=== PATIENT | male | born 1960 | race Caucasian/White ===

== ENCOUNTER → 2017-11-06 07:17 | Outpatient (CLI) | payer MEDICAID, SELFPAY ==
[2017-11-06 07:56] LABS: Alanine Aminotransferase 34 U/L (12-78); Albumin Level 3.7 gm/dL (3.4-5.0); Albumin/Globulin Ratio 1.1 (1.1-1.8); Alkaline Phosphatase 105 U/L (46-116); Anion Gap 12.3 mEq/L (5-15); Aspartate Amino Transferase 20 U/L (15-37); Bilirubin,Total 0.1 mg/dL (0.2-1.0); Blood Urea Nitrogen 20 mg/dL (7-18); Calcium 8.4 mg/dL (8.5-10.1); Carbon Dioxide 26 mmol/L (21.0-32.0); Chloride 106 mmol/L (98-107); Chol/HDL Ratio 2.1 (1-3.5); Cholesterol 179 mg/dL (140-200); Creatinine,Serum 1.07 mg/dL (0.70-1.30); Estimated Glomerular Filt Rate 71 ml/min (>60); GFR (African American) 86 ML/MIN (>60); Globulin 3.3 gm/dl (1.3-3.2); Glucose 95 mg/dL (74-106); HDL Cholesterol 85 mg/dL (27-67); LDL Cholesterol 79 mg/dL (0-130); Potassium 4.3 mmoL/L (3.5-5.1); Sodium 140 mmol/L (136-145); Thyroid Stimulating Hormone 0.34 uIU/ml (0.358-3.740); Triglycerides 76 mg/dL (30-200); VLDL Cholesterol 15 mg/dL (0-40)
[2017-11-06 08:50] LABS: Basophils % 0.6 % (0.1-2.0); Eosinophils # 0.3 K/mm3 (0.0-0.4); Eosinophils % 4.9 % (0.1-12.0); Hemoglobin 15.4 g/dL (14.1-18.0); Lymphocytes # 1.5 K/mm3 (0.7-4.5); Mean Corpuscular HGB Conc 32.7 g/dL (31.8-35.4); Mean Corpuscular Hemoglobin 29.6 pg (27.0-31.2); Mean Corpuscular Volume 90.6 fl (80-94); Mean Platelet Volume 7.2 fl (7.4-10.4); Monocytes # 0.4 K/mm3 (0.1-1.0); Monocytes % 6.5 % (1.7-9.3); Neutrophils # 3.3 K/mm3 (1.8-7.8); Platelet Count 281 K/mm3 (142-424); Red Blood Count 5.19 M/mm3 (4.60-6.20); Red Cell Distribution Width 13.9 % (11.5-17.5); White Blood Count 5.5 K/mm3 (4.8-10.8)
[2017-11-10 14:50] LABS: Vitamin D 25 Hydroxy 30.1 ng/mL (30.0-100.0)
== END ==
PROVIDERS: PCP Internal Medicine Adolescent Medicine; Visit Provider Internal Medicine Adolescent Medicine
DX: E78.5 Hyperlipidemia, unspecified (principal); E03.9 Hypothyroidism, unspecified; E55.9 Vitamin D deficiency, unspecified
CPT/HCPCS: 36415; 80053; 80061; 82652; 84443; 85025

== ENCOUNTER → 2018-03-19 09:26 | Outpatient (CLI) | payer MEDICAID, SELFPAY ==
--- NOTE | 2018-03-19 09:31 | XR_ITS ---
XR knee RT 4V Ordering Physician: Isaiah Parker MD. Patient Age: 58 years: Male HISTORY: ITS.REASON: RT KNEE PAIN No known injury TECHNIQUE: 3 view right knee weightbearing but no injury COMPARISON : November 2016 FINDINGS . Patellofemoral joint appears satisfactory on sunrise view. Weightbearing views of the knee show no prominent findings are may be some mild borderline of the medial compartment But this is negligible. There is mild sclerotic changes at medial and lateral tibial plateau. Small joint effusion suspected at the suprapatella bursa Or calcification posterior to the knee appear to be vascular most likely difficult to exclude a Yang's cyst as well posteriorly IMPRESSION: No fracture. No dislocation Suspect small joint effusion suprapatella bursa. Joint space fairly well maintained with only borderline narrowing medial compartment
== END ==
PROVIDERS: PCP Internal Medicine Adolescent Medicine; Visit Provider Internal Medicine Adolescent Medicine
DX: M25.561 Pain in right knee (principal)
CPT/HCPCS: 73564

== ENCOUNTER → 2018-05-02 13:57 | Outpatient (CLI) | payer MEDICAID, SELFPAY ==
--- NOTE | 2018-05-02 13:58 | MR_ITS ---
MR knee RT wo con HISTORY: Right knee injury with a palpable abnormality medially. Knee pain ITS.REASON: injury of right knee ORDERING PHYSICIAN: Waylon Bender MD PATIENT AGE: 58 years Comparison: 03/19/2018 TECHNIQUE: Standard multiplanar multiecho sequences are performed without contrast. FINDINGS: Posterior cruciate ligament is intact. There is thinning of the superior segments of the anterior cruciate ligament at its insertion on the femur suggesting a sprain. There is some mild hyper biplane of the PCL. The collateral ligaments and patellar tendon and quadriceps tendon are intact. There is a complex tear involving the posterior horn of the medial meniscus with multiple small meniscal fragments which are nondisplaced at this region. The anterior horn of the medial meniscus is intact. The anterior horn of the lateral meniscus is intact. There is a flipped posterior horn of the lateral meniscus flipped toward the central aspect of the knee with only fluid noted at the position where the meniscus should be. The patellar cartilage is preserved. There is a knee joint effusion with multiple complex Yang's cyst measuring up to 6 cm and left containing some internal debris. There are minimal osteoarthritic changes of the knee. Slight increased T2 signal involves the medial femoral condyle posteriorly nonspecific. IMPRESSION: 1. Complex tear the posterior horn of the medial meniscus. 2. Tear of the posterior horn of the lateral meniscus with a flipped meniscus. 3. Possible sprain of the ACL 4. Complex Yang cysts 5. Small amount of bone marrow edema in the medial femoral condyle posteriorly
== END ==
PROVIDERS: PCP Internal Medicine Adolescent Medicine; Visit Provider Orthopaedic Surgery
DX: M17.11 Unilateral primary osteoarthritis, right knee (principal); S89.91XA Unspecified injury of right lower leg, initial encounter
CPT/HCPCS: 73721

== ENCOUNTER → 2018-08-03 11:22 | Outpatient (CLI) | payer MEDICAID, SELFPAY ==
[2018-08-03 11:37] LABS: Basophils % 0.4 % (0.1-2.0); Eosinophils # 0.2 K/mm3 (0.0-0.4); Eosinophils % 2.1 % (0.1-12.0); Hematocrit 46.6 % (42.0-52.0); Hemoglobin 14.6 g/dL (14.1-18.0); Lymphocytes # 2.1 K/mm3 (0.7-4.5); Lymphocytes % 23.6 % (10-50); Mean Corpuscular HGB Conc 31.4 g/dL (31.8-35.4); Mean Corpuscular Hemoglobin 29.2 pg (27.0-31.2); Mean Corpuscular Volume 92.9 fl (80-94); Mean Platelet Volume 6.6 fl (7.4-10.4); Monocytes # 0.4 K/mm3 (0.1-1.0); Monocytes % 4.8 % (1.7-9.3); Neutrophils # 6.2 K/mm3 (1.8-7.8); Neutrophils % 69.2 % (37.0-80.0); Platelet Count 302 K/mm3 (142-424); Red Blood Count 5.02 M/mm3 (4.60-6.20); Red Cell Distribution Width 14.2 % (11.5-17.5)
[2018-08-03 11:58] LABS: Anion Gap 10.2 mEq/L (5-15); Blood Urea Nitrogen 19 mg/dL (7-18); Calcium 8.7 mg/dL (8.5-10.1); Carbon Dioxide 31 mmol/L (21.0-32.0); Chloride 102 mmol/L (98-107); Creatinine,Serum 1.05 mg/dL (0.70-1.30); Estimated Glomerular Filt Rate 72 ml/min (>60); GFR (African American) 87 ML/MIN (>60); Glucose 78 mg/dL (74-106); Potassium 4.2 mmoL/L (3.5-5.1); Sodium 139 mmol/L (136-145)
== END ==
PROVIDERS: PCP Internal Medicine Adolescent Medicine; Visit Provider Orthopaedic Surgery
DX: Z01.818 Encounter for other preprocedural examination (principal); S89.91XD Unspecified injury of right lower leg, subsequent encounter; S83.231D Complex tear of medial meniscus, current injury, right knee, subsequent encounter; S83.281D Other tear of lateral meniscus, current injury, right knee, subsequent encounter; S83.511D Sprain of anterior cruciate ligament of right knee, subsequent encounter; M25.561 Pain in right knee; M17.11 Unilateral primary osteoarthritis, right knee
CPT/HCPCS: 36415; 80048; 85025

== ENCOUNTER → 2018-08-07 08:31 | Outpatient (CLI) | payer MEDICAID, SELFPAY ==
--- NOTE | 2018-08-07 08:37 | XR_ITS ---
XR chest 2V HISTORY: ITS.REASON: H/O TOBACCO USE ORDERING PHYSICIAN: Waylon Bender MD PATIENT AGE: 58 years COMPARISON: None FINDINGS: The cardiomediastinal silhouette and pulmonary vascularity are within normal limits. Hyperinflation with attenuation of the peripheral pulmonary vessels consistent with COPD. There is a calcified granuloma in the right upper lobe. No lobar consolidation or collapse. No acute bony anomalies IMPRESSION: COPD, no acute finding
== END ==
PROVIDERS: PCP Internal Medicine Adolescent Medicine; Visit Provider Orthopaedic Surgery
DX: Z01.818 Encounter for other preprocedural examination (principal); S89.91XA Unspecified injury of right lower leg, initial encounter; M17.11 Unilateral primary osteoarthritis, right knee
CPT/HCPCS: 71046; 93005

== ENCOUNTER → 2018-09-27 07:35 | Outpatient (CLI) | payer MEDICAID, SELFPAY ==
[2018-09-27 07:53] LABS: Basophils % 0.8 % (0.1-2.0); Eosinophils # 0.3 K/mm3 (0.0-0.4); Eosinophils % 5.7 % (0.1-12.0); Hematocrit 46.6 % (42.0-52.0); Lymphocytes # 1.8 K/mm3 (0.7-4.5); Lymphocytes % 31.2 % (10-50); Mean Corpuscular HGB Conc 32.2 g/dL (31.8-35.4); Mean Corpuscular Hemoglobin 29.8 pg (27.0-31.2); Mean Corpuscular Volume 92.6 fl (80-94); Mean Platelet Volume 6.4 fl (7.4-10.4); Monocytes # 0.3 K/mm3 (0.1-1.0); Monocytes % 5.3 % (1.7-9.3); Neutrophils # 3.2 K/mm3 (1.8-7.8); Neutrophils % 57.1 % (37.0-80.0); Platelet Count 267 K/mm3 (142-424); Red Blood Count 5.03 M/mm3 (4.60-6.20); Red Cell Distribution Width 14.5 % (11.5-17.5); White Blood Count 5.6 K/mm3 (4.8-10.8)
[2018-09-27 08:58] LABS: Alanine Aminotransferase 35 U/L (12-78); Albumin/Globulin Ratio 1.4 (1.1-1.8); Alkaline Phosphatase 87 U/L (46-116); Anion Gap 12.1 mEq/L (5-15); Aspartate Amino Transferase 24 U/L (15-37); Bilirubin,Total 0.2 mg/dL (0.2-1.0); Blood Urea Nitrogen 16 mg/dL (7-18); Carbon Dioxide 29 mmol/L (21.0-32.0); Chloride 102 mmol/L (98-107); Chol/HDL Ratio 2.1 (1-3.5); Cholesterol 162 mg/dL (140-200); Creatinine,Serum 1.07 mg/dL (0.70-1.30); Estimated Glomerular Filt Rate 71 ml/min (>60); GFR (African American) 86 ML/MIN (>60); Globulin 2.8 gm/dl (1.3-3.2); Glucose 96 mg/dL (74-106); HDL Cholesterol 78 mg/dL (27-67); LDL Cholesterol 67 mg/dL (0-130); Potassium 5.1 mmoL/L (3.5-5.1); Sodium 138 mmol/L (136-145); Thyroid Stimulating Hormone 1.83 uIU/ml (0.358-3.740); Total Protein,Serum 6.8 gm/dL (6.4-8.2); Triglycerides 84 mg/dL (30-200); VLDL Cholesterol 17 mg/dL (0-40)
[2018-09-29 11:57] LABS: Vitamin D 25 Hydroxy 33.1 ng/mL (30.0-100.0)
== END ==
PROVIDERS: Visit Provider Internal Medicine Adolescent Medicine
DX: E03.9 Hypothyroidism, unspecified (principal); E78.5 Hyperlipidemia, unspecified; E55.9 Vitamin D deficiency, unspecified
CPT/HCPCS: 36415; 80053; 80061; 82652; 84443; 85025

== ENCOUNTER → 2018-10-23 12:40 | Outpatient (CLI) | payer MEDICAID, SELFPAY ==
--- NOTE | 2018-10-23 12:42 | CT_ITS ---
CT lung screening EXAM: CT LUNG LOW DOSE WO CONTRAST HISTORY: 80 pack-year smoking history, asymptomatic for lung cancer ITS.REASON: TOBACCO USE ORDERING PHYSICIAN: Isaiah Parker MD PATIENT AGE: 58 years COMPARISON: None TECHNIQUE: The exam was performed on a GE Light Speed [address] scanner using 2.90 mGy CTDI. A low dose helical CT CHEST was performed on a multi-detector scanner. All CT scans at the facility use one or more dose reduction, viz: automated exposure control, ma/kV adjustment per patient size (including targeted exams where dose is matched to indication, i.e. head), or iterative reconstruction technique. The LDCT was performed in a facility that meets the criteria for the screening program. Data regarding this exam was submitted to ACR which is an approved registry. The order for this exam indicates that it came as a result of a lung cancer screening counseling shard decision-making visit that included all the elements required of such a visit including smoking cessation. The radiologist interpreting this exam meets the [facility] criteria for the LDCT lung cancer screening program. The exam is reported using the Lung-RADS classification scale and reported to the ACR registry. NOTE: This study was performed for the specific purposes of lung cancer screening and is not an alternative to diagnostic chest CT. RADIATION DOSE: CTDI vol(CT dose Index-volume) = 2.90mG DLP (Dose Length Product) = 109.82 mGcm FINDINGS: Centrilobular and paraseptal emphysema. 7 mm nodule along the right major fissure inferiorly noncalcified. Subpleural 6 mm nodule right lower lobe noncalcified 6 mm noncalcified nodule right upper lobe centrally series 4 image 28 Calcified nodule right upper lobe 5 mm fissural nodule left major fissure series 4 image 34 Coronary artery calcifications. Calcified nodes in the hilum. There is some mild pericardial thickening anteriorly IMPRESSION: 1. Lung RADS Category: 3, probably benign 2. Other findings: Centrilobular and paraseptal emphysema, old granulomatous disease, coronary artery calcifications RECOMMENDATIONS: 6 month LDCT follow-up
== END ==
PROVIDERS: PCP Internal Medicine Adolescent Medicine; Visit Provider Internal Medicine Adolescent Medicine
DX: Z12.2 Encounter for screening for malignant neoplasm of respiratory organs (principal); Z87.891 Personal history of nicotine dependence

== ENCOUNTER → 2019-04-25 14:16 | Outpatient (CLI) | payer MEDICAID, SELFPAY ==
--- NOTE | 2019-04-25 14:21 | CT_ITS ---
PROCEDURE: CT CHEST WO CON CLINICAL INDICATION: 6 MO FU Six-month follow-up abnormal chest CT, tobacco use, 80 pack-year smoking history COMPARISON: LUNGSCREEN CT lung screening from 10/23/2018 TECHNIQUE: Axial images obtained with sagittal and coronal reformats. All CT scans at the facility use one or more dose reduction, viz: automated exposure control, ma/kV adjustment per patient size (including targeted exams where dose is matched to indication, i.e. head), or iterative reconstruction technique. FINDINGS: HEART: Coronary artery calcification. Normal heart size MEDIASTINAL AND HILAR STRUCTURES: Small hiatal hernia. Calcified nodes are present in the right hilar region PULMONARY ARTERIES: Nonenlarged AORTA: No evidence of aneurysm. Atherosclerotic changes are present LUNGS:COPD. Paraseptal emphysematous change. Stable 7 mm fissural nodule inferiorly on the right. Stable subpleural nodule right lower lobe posteriorly 5-6 mm no change 4 mm nodule in the central aspect of the right upper lobe. There are mild atelectatic changes in left lung base. PLEURAL SPACES: No significant effusion. No evidence of pneumothorax. BONY STRUCTURES: No acute bony abnormalities apparent. LYMPH NODES: No enlarged lymph nodes evident. UPPER ABDOMEN: Unremarkable. ADDITIONAL FINDINGS: No other significant abnormalities. IMPRESSION: COPD. Stable benign-appearing pulmonary nodules. No convincing evidence of malignancy. Recommend continued follow-up in 12 months with LDCT Dictated by: Darien Braun MD 04/26/2019 08:24 Signed by: <Electronically signed by Darien Braun MD in [place]> 04/26/2019 08:24
== END ==
PROVIDERS: PCP Internal Medicine Adolescent Medicine; Visit Provider Internal Medicine Adolescent Medicine
DX: R91.1 Solitary pulmonary nodule (principal)
CPT/HCPCS: 71250

== ENCOUNTER → 2019-06-26 09:14 | Outpatient (CLI) | payer MEDICAID, SELFPAY ==
[2019-06-26 09:26] LABS: Basophils % 0.7 % (0.1-2.0); Eosinophils # 0.2 K/mm3 (0.0-0.4); Eosinophils % 2.8 % (0.1-12.0); Hematocrit 44.6 % (42.0-52.0); Hemoglobin 14.8 g/dL (14.1-18.0); Lymphocytes # 1.5 K/mm3 (0.7-4.5); Lymphocytes % 24.7 % (10-50); Mean Corpuscular HGB Conc 33.3 g/dL (31.8-35.4); Mean Platelet Volume 7.2 fl (7.4-10.4); Monocytes # 0.4 K/mm3 (0.1-1.0); Neutrophils # 3.9 K/mm3 (1.8-7.8); Neutrophils % 65.8 % (37.0-80.0); Platelet Count 321 K/mm3 (142-424); Red Blood Count 4.79 M/mm3 (4.60-6.20); Red Cell Distribution Width 13.9 % (11.5-17.5)
[2019-06-26 11:47] LABS: Alanine Aminotransferase 34 U/L (12-78); Albumin Level 3.9 gm/dL (3.4-5.0); Albumin/Globulin Ratio 1.3 (1.1-1.8); Alkaline Phosphatase 83 U/L (46-116); Anion Gap 11.5 mEq/L (5-15); Aspartate Amino Transferase 31 U/L (15-37); Bilirubin,Total 0.4 mg/dL (0.2-1.0); Blood Urea Nitrogen 12 mg/dL (7-18); Calcium 9.4 mg/dL (8.5-10.1); Carbon Dioxide 28 mmol/L (21.0-32.0); Chloride 101 mmol/L (98-107); Cholesterol 172 mg/dL (140-200); Creatinine,Serum 0.91 mg/dL (0.70-1.30); Estimated Glomerular Filt Rate 85 ml/min (>60); Free Thyroxine Index 5.6 ug/dL (5.93-13.13); GFR (African American) 103 ML/MIN (>60); Globulin 2.9 gm/dl (1.3-3.2); Glucose 87 mg/dL (74-106); HDL Cholesterol 86 mg/dL (27-67); LDL Cholesterol 77 mg/dL (0-130); Potassium 4.5 mmoL/L (3.5-5.1); Sodium 136 mmol/L (136-145); T4 (Thyroxine) 16.1 ug/dl (4.7-13.3); Thyroid Stimulating Hormone 3.52 uIU/ml (0.358-3.740); Total Protein,Serum 6.8 gm/dL (6.4-8.2); Triglycerides 46 mg/dL (30-200); Triiodothryronine (T3) Uptake 35 % (31-39); VLDL Cholesterol 9 mg/dL (0-40)
== END ==
PROVIDERS: Visit Provider Internal Medicine Adolescent Medicine
DX: E78.5 Hyperlipidemia, unspecified (principal); E55.9 Vitamin D deficiency, unspecified; E03.9 Hypothyroidism, unspecified
CPT/HCPCS: 36415; 80053; 80061; 84436; 84443; 84479; 85025

== ENCOUNTER → 2019-07-16 16:10 | Outpatient (CLI) | payer OTHER, SELFPAY ==
[2019-07-16 17:55] LABS: Amphetamine/Metha Screen,Urine Negative ng/mL (<1000); Barbiturates Screen,Urine Negative ng/mL (<200); Benzodiazepines Screen,Urine Negative ng/mL (<200); Cannabinoid Screen,Urine Positive ng/mL (<50); Cocaine Screen,Urine Negative ng/mL (<300); Methadone Screen,Urine Negative ng/mL (<300); Opiate Screen,Urine Positive ng/mL (<300); Phencyclidine Screen,Urine Negative ng/mL (<25)
== END ==
PROVIDERS: Visit Provider Internal Medicine
DX: G89.29 Other chronic pain (principal); M54.2 Cervicalgia; M54.5 Low back pain
CPT/HCPCS: 80305

== ENCOUNTER → 2020-02-06 07:25 | Outpatient (CLI) | payer OTHER, SELFPAY ==
[2020-02-06 08:17] LABS: Basophils % 0.6 % (0.1-2.0); Eosinophils # 0.3 K/mm3 (0.0-0.4); Eosinophils % 4.2 % (0.1-12.0); Hematocrit 44.2 % (42.0-52.0); Hemoglobin 14.3 g/dL (14.1-18.0); Lymphocytes # 1.7 K/mm3 (0.7-4.5); Lymphocytes % 25.9 % (10-50); Mean Corpuscular HGB Conc 32.3 g/dL (31.8-35.4); Mean Corpuscular Hemoglobin 30.2 pg (27.0-31.2); Mean Corpuscular Volume 93.4 fl (80-94); Monocytes # 0.5 K/mm3 (0.1-1.0); Monocytes % 7.4 % (1.7-9.3); Neutrophils # 4.1 K/mm3 (1.8-7.8); Neutrophils % 61.8 % (37.0-80.0); Platelet Count 258 K/mm3 (142-424); Red Blood Count 4.73 M/mm3 (4.60-6.20); Red Cell Distribution Width 13.6 % (11.5-17.5); White Blood Count 6.6 K/mm3 (4.8-10.8)
[2020-02-06 11:29] LABS: Alanine Aminotransferase 23 U/L (12-78); Albumin Level 4.4 g/dl (3.5-5.0); Albumin/Globulin Ratio 1.8 (1.1-1.8); Alkaline Phosphatase 88 U/L (38-126); Anion Gap 12.6 mEq/L (5-15); Aspartate Amino Transferase 44 U/L (17-59); Bilirubin,Total 0.4 mg/dl (0.2-1.3); Blood Urea Nitrogen 14 mg/dl (9-20); Calcium 9.5 mg/dl (8.4-10.2); Carbon Dioxide 29 mmol/L (22.0-30.0); Chloride 98 mmol/L (98-107); Chol/HDL Ratio 1.9 (1-3.5); Cholesterol 162 mg/dl (140-200); Estimated Glomerular Filt Rate 68 ml/min (>60); GFR (African American) 83 ML/MIN (>60); Globulin 2.4 g/dL (1.3-3.2); Glucose 95 mg/dl (74-100); HDL Cholesterol 87 mg/dl (40-60); Potassium 4.6 mmoL/L (3.5-5.1); Sodium 135 mmol/L (136-145); Total Protein,Serum 6.8 g/dl (6.3-8.2); Triglycerides 76 mg/dl (30-150); VLDL Cholesterol 15 mg/dL (0-40)
[2020-02-06 11:40] LABS: Direct LDL Cholesterol 72.37 mg/dL (100-129)
[2020-02-06 12:00] LABS: Prostate Specific Ag, Diagnost 0.769 ng/ml (0.0-4.0); Thyroid Stimulating Hormone 6.21 uIU/mL (0.465-4.68)
[2020-02-07 11:25] LABS: Free T4 (Free Thyroxine) 1.54 ng/dl (0.78-2.19)
== END ==
PROVIDERS: Visit Provider Internal Medicine
DX: E78.5 Hyperlipidemia, unspecified (principal); E03.9 Hypothyroidism, unspecified; I10 Essential (primary) hypertension; N40.1 Benign prostatic hyperplasia with lower urinary tract symptoms; M15.0 Primary generalized (osteo)arthritis
CPT/HCPCS: 36415; 80053; 80061; 84153; 84439; 84443; 85025

== ENCOUNTER 2020-06-04 15:20 | Emergency (ER) | payer OTHER, SELFPAY ==
[2020-06-04 15:27] VITALS: PULSE 80; RESP 16; TEMP 36.8; O2SAT 98; BMI 23.5
[2020-06-04 15:38] VITALS: PULSE 80; RESP 16; TEMP 36.8; O2SAT 98; BMI 23.5
--- NOTE | 2020-06-04 15:48 | XR_ITS ---
PROCEDURE: XR HAND RT MIN 3V CLINICAL INDICATION: mashed hand Pain following injury COMPARISON: No exams were available for comparison FINDINGS: No fracture or dislocation. No lytic or blastic change. There is normal mineralization. The joint spaces are well-preserved. No significant degenerative/arthritic changes. No erosive changes evident. Other findings:There is a small opacity within the soft tissues at the distal aspect of the thumb possibly due to small foreign body. Small density also noted anterior to the mid aspect of the wrist within the soft tissues. IMPRESSION: No acute finding. See above Dictated by: Darien Braun MD 06/04/2020 16:14 Darien Braun MD in [place] 06/04/2020 16:14
--- NOTE | 2020-06-04 15:51 | HMH.EDUTC ---
[facility] [place] Clinical Impression: Laceration Disposition: Home, Self-Care Condition on Discharge: Good Instructions: How to Care for a Laceration After Repair, Laceration Repair, DI for Laceration Repair, DI for Laceration Repair -- Simple, DI for Laceration Repair With Dermabond Additional Instructions: Suture instructions: You have required stitches today. Please read the following instructions so you know how to care for them: 1. Keep wound area dry for the first 24 hours. 2 May clean gently with mild soap and water, after 48 hours to prevent crusting over suture knots. 3. You may shower if your provider gives permission but do not take a bath until the skin is healed.. 4. Never leave a wet dressing or Band-Aid on your stitches as this allows bacteria to reach the area and may cause infection. Band-aids can cause the wound to sweat and not recommended to wear for long periods of time no neosporin on stitches after today may use on nailbed of index finger Watch for signs of infection: Increasing redness, tenderness or warmth around the suture site Unusual swelling around the site Appearance of pus around each suture or any red streaks Fever If you develop any of the above signs or symptoms of infection, Follow up with Family Physician immediately 5. Suture removal in _-12___days 6. Return to [facility] or follow up with family doctor for removal. This can be done by any medical provider during regular hours on Monday through Monday, by appointment. Follow up immediately with Family Doctor if any worsening of pain or signs of infection in fingers Straight to ER if any life threatening symptoms Over the counter Motrin and/or Tylenol which ever your doctor has told you that you can take for pain Elevation may help with pain and swelling Referrals: Micheal Saxena [Primary Care Provider] - As needed Time of Disposition: 16:57 Medical Decision Making - Jd Inquiry Pt receiving controlled substance: No Jd was queried for this patient: No Vital Signs: 06/04/20 15:27 06/04/20 15:38 Temperature 98.2 F 98.2 F Temperature Source Oral Oral Pulse Rate [Right] 80 80 Respiratory Rate 16 16 02 Sat by Pulse Oximetry 98 98 Oxygen Delivery Method Room Air Room Air Orders (Tests/Meds): ED MEDICATIONS Discontinued Medications Generic Name Dose Route Start Last Admin Trade Name Freq PRN Reason Stop Dose Admin Tetanus/Reduced Diphtheria/Acell Pertussis 0.5 ml 06/04/20 16:09 Tet/Diphth/Pert-Adult 0.5ml Syringe IM 06/04/20 16:10 .ONCE ONE - Radiology Data #1 Image(s): Hand Image Reviewed: Yes I have reviewed radiologist's interpretation No acute finding. Medical Decision Narrative: discussed index finger with patient and has small abrasion at the cuticle area of nailbed and bruising noted to nailbed Recommended that patient be transferred to ED for further evaluation and patient declined after further discussion agreed to allow closure of laceration on his middle finger no active bleeding noted Patient advised of possiblility of losing nail on right index finger and patient verbalized understanding and still declined transfer due to possible nailbed injury [facility] [place] - General Stated complaint: AO [id number] Lac to R Hand Time Seen by Provider: 06/04/20 15:52 Mode of Arrival: Ambulatory Source of Information: Patient Limitations: No Limitations Description of Symptoms (Recalled from Triage Doc. by RN): PATIENT C/O LACERATIONS TO RIGHT MIDDLE AND INDEX FINGER WHILE HE WAS GETTING A SAW OUT OF HIS TRUCK TODAY HEENT Symptoms (Recalled from RN notes): No Resp Symptoms (Recalled from RN notes): No Skin Symptoms (Recalled from RN notes): Yes MS Symptoms (Recalled from RN notes): No Functional Status (Recalled from RN notes): WNL - History of Present Illness Provider Complaint: Patient states that he was getting a saw out of his truck today when it fell and landed on his right index and middl
[2020-06-04 16:58] VITALS: BP 136/86; PULSE 90; RESP 22; TEMP 37.1; O2SAT 99
== END 2020-06-04 17:00 | disposition home or self-care (01) ==
PROVIDERS: Emergency Provider Nurse Practitioner; PCP Internal Medicine
DX: S61.210A Laceration without foreign body of right index finger without damage to nail, initial encounter (principal); W27.8XXA Contact with other nonpowered hand tool, initial encounter; Y92.89 Other specified places as the place of occurrence of the external cause; Z23 Encounter for immunization; I10 Essential (primary) hypertension; F17.210 Nicotine dependence, cigarettes, uncomplicated
CPT/HCPCS: 12001; 73130; 90471; 90715; 99202

== ENCOUNTER → 2020-08-10 10:51 | Outpatient (CLI) | payer OTHER, SELFPAY ==
[2020-08-10 12:42] LABS: Coronavirus 19 IgG Antibody Negative (Negative); Coronavirus 19 IgM Antibody Negative (Negative)
== END ==
PROVIDERS: Visit Provider Surgery
DX: Z01.818 Encounter for other preprocedural examination (principal); Z03.818 Encounter for observation for suspected exposure to other biological agents ruled out; Z12.2 Encounter for screening for malignant neoplasm of respiratory organs; Z87.19 Personal history of other diseases of the digestive system
CPT/HCPCS: 36415; 86328

== ENCOUNTER 2020-08-11 07:24 | Day surgery (SDC) | payer OTHER, SELFPAY ==
[2020-08-07 16:05] VITALS: BMI 20.3
[2020-08-11 07:42] VITALS: BP 147/88; PULSE 64; RESP 18; TEMP 36.2; O2SAT 99
--- NOTE | 2020-08-11 08:05 | HMH.GSHP ---
HPI HPI: Patient is a 60-year-old white male under the care of Dr. Micheal Saxena. He presents for scheduling of follow-up colonoscopy. It appears as though the patient had a colonoscopy for screening purposes by Dr. Mishra 6 years ago. This revealed diverticulosis. It was recommended he undergo follow-up colonoscopy in 5 or 6 years. Patient states that he believes his stomach shrunk . He has symptoms of occasional bright red blood per rectum with bowel movements. This is painless. He states that this is been ongoing for years. He has had about a 20 to 30 pound unintentional weight loss but he states that he is very active and has had some thyroid issues as well. There is a possible history of colon cancer in his grandfather. [facility] History I have reviewed the patient's past medical history: Yes Medical History: Reports:: Hypertension Denies:: Cancer, Diabetes Mellitus Type 1, Diabetes Mellitus Type 2, Internal Pacemaker, MRSA, Seizures *Have you ever received a pneumonia vaccine?: No *Have you received a flu vaccine this season?: No Other Medical History: Reports: Arthritis. Denies: Blood Transfusion Reaction Laterality Cases: Left: Arthroscopy Shoulder, Right: Arthroscopy Knee Other Surgeries: Yes: Colonoscopy. No: Pacemaker Amputation: No Fractures: No - *Social History Smoking Status: Current every day smoker Tobacco Type: cigarettes # Packs/Day (cigarettes): 1 Alcohol Intake: never Substance Use Type: denies use *Occupational Status:: employed Housing: house *Travel in the last 8 weeks: None Family Hx:: Cancer, Diabetes, Heart Attack, Hypertension Review of Systems - Review of Systems Review of systems:: pertinent systems reviewed and negative unless documented below Meds Home Medications Medication Instructions Recorded Confirmed Type Atorvastatin Calcium [Lipitor 40mg 40 mg PO HS 06/04/20 08/11/20 History Tab] Hydrocodone/Acetaminophen [Lortab 1 tab PO Q6HP PRN 06/04/20 08/11/20 History 10/325mg tablet] Levothyroxine Sodium 125 mcg PO DAILY 06/04/20 08/11/20 History [Levothyroxine 125mcg (0.125mg) Tab] lisinopriL [Lisinopril 2.5mg Tab] 2.5 mg PO DAILY 06/04/20 08/11/20 History Sodium, Potassium,Mag Sulfates See Rx Instructions PO .COMPLEX 08/07/20 08/11/20 History [Suprep Bowel Prep Kit] Allergies Allergy/AdvReac Type Severity Reaction Status Date / Time No Known Allergies Allergy Verified 08/11/20 07:39 Exam Vital signs and Labs for Last 24 Hours: Temp Pulse Resp BP Pulse Ox 97.1 F L 64 18 147/88 H 99 08/11/20 07:42 08/11/20 07:42 08/11/20 07:42 08/11/20 07:42 08/11/20 07:42 I & O for Last 24 hours: Intake & Output 08/08/20 08/09/20 08/10/20 08/11/20 11:59 11:59 11:59 11:59 Weight 130 lb - *Routine HEENT Exam Head: Present: normocephalic Eye: Present: EOMI, PERRL ENT: Present: mucous membranes moist - *Routine Neck Exam Present: supple. Absent: lymphadenopathy - *Routine Respiratory Exam Present: CTA bilaterally - *Routine Cardiovascular Exam Present: RRR - *Routine Abdominal Exam Present: soft, normoactive bowel sounds. Absent: tenderness - *Routine Extremities Exam Absent: cyanosis, clubbing, edema - *Routine Skin Exam Present: warm. Absent: rash - *Routine Neurological Exam Present: alert, oriented X3 Assessment and Plan - Assessment and plan all Dx Assessment and Plan for all problems:: Plan for colonoscopy
--- NOTE | 2020-08-11 08:07 | HMH.ANESCL ---
[facility] Anesthesia Checklist - Patient Identification Patient Identification: Arm Band, Verbal (Name & ) - Structural Data Admitted From: Home Planned Operative Procedure/s: colon Consent for Planned Operative Procedure(s) Verified: Yes Verified Documents: History and Physical - NPO Status Verified Time NPO: 00:00 - Chart Verification Results Verified: CBC, BMP - Additional verifications Patient : No Anesthesia Reactions: No Hx Blood Transfusions: No Blood Transfusion Reaction: No Cephalosporin Allergy: No Previous Colonoscopy: Yes - Cardiovascular Assessment Heart Sounds: S1 & S2 Pulse Strength: Baseline Pulse Rhythm: Regular Peripheral Edema: No - Airway Assessment C-Spine Mobility Assessed: Yes TMJ Mobility Assessed: Yes Dentition: Good Dentition - Neurological Assessment Level of Consciousness: Awake, Alert, Appropriate Hx Seizures: No Numbness or tingling in extremities: No - Anesthesia Plan Anesthesia Risk discussed: Yes Anesthesia Plan: Verified ASA Class: III Anesthesia Type: MAC [facility] History I have reviewed the patient's past medical history: Yes Medical History: Reports:: Hypertension Denies:: Cancer, Diabetes Mellitus Type 1, Diabetes Mellitus Type 2, Internal Pacemaker, MRSA, Seizures *Have you ever received a pneumonia vaccine?: No *Have you received a flu vaccine this season?: No Other Medical History: Reports: Arthritis. Denies: Blood Transfusion Reaction Anesthesia experience/problems:: none Laterality Cases: Left: Arthroscopy Shoulder, Right: Arthroscopy Knee Other Surgeries: Yes: Colonoscopy. No: Pacemaker Amputation: No Fractures: No - *Social History Smoking Status: Current every day smoker Tobacco Type: cigarettes # Packs/Day (cigarettes): 1 Alcohol Intake: never Substance Use Type: denies use *Occupational Status:: employed Housing: house *Travel in the last 8 weeks: None Family Hx:: Cancer, Diabetes, Heart Attack, Hypertension
[2020-08-11 08:22] VITALS: O2SAT 99
[2020-08-11 09:12] VITALS: BP 132/80; PULSE 60; RESP 18; TEMP 36.3; O2SAT 100
--- NOTE | 2020-08-11 09:14 | P.PCN_ITS ---
- Procedure: Date: 08/11/20 Patient Date of :: 1960 Procedure Performed:: Total colonoscopy to terminal ileum with multiple polypectomy of large polyps using snare with clip deployment Indications:: Patient is a 60-year-old white male under the care of Dr. Micheal Saxena. He presents for scheduling of follow-up colonoscopy. It appears as though the patient had a colonoscopy for screening purposes by Dr. Mishra 6 years ago. This revealed diverticulosis. It was recommended he undergo follow-up colonoscopy in 5 or 6 years. Patient states that he believes his stomach shrunk . He has symptoms of occasional bright red blood per rectum with bowel movements. This is painless. He states that this is been ongoing for years. He has had about a 20 to 30 pound unintentional weight loss but he states that he is very active and has had some thyroid issues as well. There is a possible history of colon cancer in his grandfather. Performing Provider:: Ran Garrison MD Referring Provider:: Micheal Saxena MD Sedation:: MAC sedation Procedure:: Consent was obtained and patient was taken to endoscopy procedure room. He was positioned in a lateral decubitus position. Adequate intravenous sedation was achieved with anesthesia titration of propofol. Variable stiffness Olympus colonoscope was inserted via the anus. It was advanced to the cecum. Colonic preparation was good. Ileocecal valve and appendiceal orifice were clearly identified. Colonoscope was advanced into the terminal ileum which appeared grossly normal. Colonoscope was withdrawn through the colon with careful surveillance. In the descending colon there was a single nonbleeding AVM. He had some left-sided diverticulosis. In the descending colon there was a m oderate adenomatous appearing polyp removed with hot snare. In the sigmoid colon there was a moderate to large sigmoid polyp removed with hot snare. In the proximal rectum there was a rather large polyp measuring at least 2 cm removed with hot snare. There was some post polypectomy bleeding and Hemoclip was deployed which resulted in good hemostasis. There was a moderate adenomatous appearing distal rectal polyp removed with hot snare. Retroflexion revealed internal hemorrhoids. There was a small possible hyperplastic distal rectal polyp biopsied with cold biopsy forceps. Colonoscope was withdrawn. Findings:: Descending colon polyp Sigmoid colon polyp Proximal rectal polyp Distal rectal polyp Distal rectal polyp #2, likely hyperplastic, biopsied Prolapsing hemorrhoids Recommendations:: Follow-up on histopathology. Given the number and large size of polyps likely repeat colonoscopy 1 to 2 years, pending pathologic findings. Complications:: None immediately apparent Estimated blood obtained (mL): 7
[2020-08-11 09:22] VITALS: BP 116/71; PULSE 58; RESP 18; O2SAT 100
[2020-08-11 09:32] VITALS: BP 137/74; PULSE 56; RESP 18; O2SAT 99
[2020-08-11 09:52] VITALS: BP 123/87; PULSE 53; RESP 18; O2SAT 100
== END 2020-08-11 10:00 | disposition home or self-care (01) ==
LOC: OUTP 07:26
PROVIDERS: PCP Internal Medicine; Visit Provider Surgery
PROC: 0DJD8ZZ Inspection of Lower Intestinal Tract, Via Natural or Artificial Opening Endoscopic (ICD-10-PCS; CPT 45385; principal; 2020-08-11 08:30)
DX: Z12.11 Encounter for screening for malignant neoplasm of colon (principal); K63.5 Polyp of colon; K64.8 Other hemorrhoids; K55.20 Angiodysplasia of colon without hemorrhage; K57.30 Diverticulosis of large intestine without perforation or abscess without bleeding; K62.1 Rectal polyp; I10 Essential (primary) hypertension; Z72.0 Tobacco use
CPT/HCPCS: 45385; 45380

== ENCOUNTER → 2020-09-11 10:51 | Outpatient (CLI) | payer OTHER, SELFPAY ==
--- NOTE | 2020-09-11 10:58 | XR_ITS ---
PROCEDURE: XR FINGER RT MIN 2V CLINICAL INDICATION: RT 4TH FINGER INJURY Pain COMPARISON: No exams were available for comparison FINDINGS: No fracture or dislocation. No lytic or blastic change. There is normal mineralization. The joint spaces are well-preserved. No significant degenerative/arthritic changes. No erosive changes evident. Other findings:None. IMPRESSION: No acute findings. Dictated by: Darien Braun MD 09/11/2020 11:12 Darien Braun MD in [place] 09/11/2020 11:12
== END ==
PROVIDERS: PCP Internal Medicine; Visit Provider Internal Medicine
DX: M79.644 Pain in right finger(s) (principal)
CPT/HCPCS: 73140

== ENCOUNTER → 2021-05-28 13:35 | Outpatient (CLI) | payer OTHER, SELFPAY ==
[2021-05-28 15:47] LABS: Alanine Aminotransferase 34 U/L (12-78); Albumin Level 3.7 g/dl (3.5-5.0); Albumin/Globulin Ratio 1.5 (1.1-1.8); Alkaline Phosphatase 92 U/L (38-126); Anion Gap 8.8 mEq/L (5-15); Aspartate Amino Transferase 52 U/L (17-59); Bilirubin,Total 0.3 mg/dl (0.2-1.3); Blood Urea Nitrogen 16 mg/dl (9-20); Calcium 8.6 mg/dl (8.4-10.2); Carbon Dioxide 24 mmol/L (22.0-30.0); Chloride 105 mmol/L (98-107); Chol/HDL Ratio 1.9 (1-3.5); Cholesterol 174 mg/dl (140-200); Estimated Glomerular Filt Rate 114 ml/min (>60); GFR (African American) 138 ML/MIN (>60); Globulin 2.4 g/dL (1.3-3.2); Glucose 72 mg/dl (74-100); HDL Cholesterol 90 mg/dl (40-60); Potassium 3.8 mmoL/L (3.5-5.1); Sodium 134 mmol/L (136-145); Total Protein,Serum 6.1 g/dl (6.3-8.2); Triglycerides 65 mg/dl (30-150); VLDL Cholesterol 13 mg/dL (0-40)
[2021-05-28 16:16] LABS: Thyroid Stimulating Hormone 6.58 uIU/mL (0.465-4.68)
== END ==
PROVIDERS: Visit Provider Internal Medicine
DX: E03.9 Hypothyroidism, unspecified (principal); E78.5 Hyperlipidemia, unspecified; I10 Essential (primary) hypertension
CPT/HCPCS: 36415; 80053; 80061; 84443

== ENCOUNTER → 2021-11-29 13:28 | Outpatient (CLI) | payer OTHER, SELFPAY ==
[2021-11-29 14:22] LABS: Basophils % 0.7 % (0.1-2.0); Eosinophils # 0.1 K/mm3 (0.0-0.4); Eosinophils % 2.8 % (0.1-12.0); Hematocrit 45.4 % (42.0-52.0); Hemoglobin 14.9 g/dL (14.1-18.0); Lymphocytes # 1.6 K/mm3 (0.7-4.5); Lymphocytes % 33.7 % (10-50); Mean Corpuscular HGB Conc 32.8 g/dL (31.8-35.4); Mean Corpuscular Hemoglobin 31.4 pg (27.0-31.2); Mean Corpuscular Volume 95.7 fl (80-94); Mean Platelet Volume 8.6 fl (7.4-10.4); Monocytes # 0.3 K/mm3 (0.1-1.0); Neutrophils # 2.7 K/mm3 (1.8-7.8); Neutrophils % 55.7 % (37.0-80.0); Platelet Count 261 K/mm3 (142-424); Red Blood Count 4.74 M/mm3 (4.60-6.20); White Blood Count 4.8 K/mm3 (4.8-10.8)
[2021-11-29 14:38] LABS: Alanine Aminotransferase 25 U/L (12-78); Albumin Level 4.2 g/dl (3.5-5.0); Alkaline Phosphatase 86 U/L (38-126); Aspartate Amino Transferase 36 U/L (17-59); Bilirubin,Total 0.4 mg/dl (0.2-1.3); Blood Urea Nitrogen 15 mg/dl (9-20); Calcium 8.6 mg/dl (8.4-10.2); Carbon Dioxide 28 mmol/L (22.0-30.0); Chloride 104 mmol/L (98-107); Chol/HDL Ratio 2.1 (1-3.5); Cholesterol 176 mg/dl (140-200); Estimated Glomerular Filt Rate 98 ml/min (>60); GFR (African American) 119 ML/MIN (>60); Globulin 2.1 g/dL (1.3-3.2); Glucose 69 mg/dl (74-100); HDL Cholesterol 83 mg/dl (40-60); Sodium 136 mmol/L (136-145); Total Protein,Serum 6.3 g/dl (6.3-8.2); Triglycerides 94 mg/dl (30-150); VLDL Cholesterol 19 mg/dL (0-40)
[2021-11-29 14:45] LABS: Phencyclidine Screen,Urine Negative ng/ml (<25)
[2021-11-29 14:48] LABS: Direct LDL Cholesterol 64.07 mg/dL (100-129)
[2021-11-29 14:57] LABS: Amphetamine/Metha Screen,Urine Negative ng/ml (<1000); Cannabinoid Screen,Urine Positive ng/ml (<50)
[2021-11-29 14:58] LABS: Barbiturates Screen,Urine Negative ng/ml (<200)
[2021-11-29 14:59] LABS: Benzodiazepines Screen,Urine Negative ng/ml (<200)
[2021-11-29 15:00] LABS: Cocaine Screen,Urine Negative ng/ml (<300)
[2021-11-29 15:01] LABS: Methadone Screen,Urine Negative ng/ml (<300)
[2021-11-29 15:02] LABS: Opiate Screen,Urine Positive ng/ml (<300)
[2021-11-29 15:09] LABS: Prostate Specific Ag Screen 0.9 ng/ml (0.0-4.0); Thyroid Stimulating Hormone 0.33 uIU/mL (0.465-4.68)
== END ==
PROVIDERS: Visit Provider Internal Medicine
DX: E78.5 Hyperlipidemia, unspecified (principal); N40.1 Benign prostatic hyperplasia with lower urinary tract symptoms; M15.0 Primary generalized (osteo)arthritis; I10 Essential (primary) hypertension; F03.90 Unspecified dementia, unspecified severity, without behavioral disturbance, psychotic disturbance, mood disturbance, and anxiety; Z12.5 Encounter for screening for malignant neoplasm of prostate
CPT/HCPCS: 80053; 80061; 80305; 84443; 85025; G0103

== ENCOUNTER → 2022-01-28 12:08 | Outpatient (CLI) | payer OTHER, SELFPAY ==
[2022-01-28 13:15] LABS: Erythrocyte Sedimentation Rate 9 mm/hr (0-20)
[2022-01-28 13:18] LABS: Basophils % 0.7 % (0.1-2.0); Eosinophils # 0.3 K/mm3 (0.0-0.4); Eosinophils % 5.8 % (0.1-12.0); Hematocrit 40.9 % (42.0-52.0); Hemoglobin 14.2 g/dL (14.1-18.0); Lymphocytes # 1.9 K/mm3 (0.7-4.5); Lymphocytes % 38.4 % (10-50); Mean Corpuscular HGB Conc 34.8 g/dL (31.8-35.4); Mean Corpuscular Volume 89.1 fl (80-94); Mean Platelet Volume 8.2 fl (7.4-10.4); Monocytes # 0.5 K/mm3 (0.1-1.0); Monocytes % 9.8 % (1.7-9.3); Neutrophils # 2.2 K/mm3 (1.8-7.8); Neutrophils % 45.3 % (37.0-80.0); Platelet Count 261 K/mm3 (142-424); Red Blood Count 4.59 M/mm3 (4.60-6.20); Red Cell Distribution Width 13.3 % (11.5-17.5); White Blood Count 4.8 K/mm3 (4.8-10.8)
[2022-01-28 15:17] LABS: Thyroid Stimulating Hormone 0.08 uIU/mL (0.465-4.68)
== END ==
PROVIDERS: PCP Internal Medicine; Visit Provider Internal Medicine
DX: E03.9 Hypothyroidism, unspecified (principal); R53.83 Other fatigue
CPT/HCPCS: 84443; 85025; 85651

== ENCOUNTER → 2022-05-06 14:41 | Outpatient (CLI) | payer OTHER, SELFPAY ==
[2022-05-06 17:42] LABS: Thyroid Stimulating Hormone 0.02 uIU/mL (0.465-4.68)
== END ==
PROVIDERS: PCP Internal Medicine; Visit Provider Internal Medicine
DX: E03.9 Hypothyroidism, unspecified (principal); I10 Essential (primary) hypertension
CPT/HCPCS: 84443

== ENCOUNTER → 2022-05-11 13:10 | Outpatient (CLI) | payer OTHER, SELFPAY ==
--- NOTE | 2022-05-11 13:12 | CT_ITS ---
FINAL REPORT CLINICAL HISTORY: 62-year-old male current smoker with 40 pack-year history COMPARISON: 04/25/2019 FINDINGS: Axial images were obtained from the lung apex to the mid abdomen by computed tomography. Low-dose protocol was utilized. CTDl vol(mGy): 2.90 DLP (mGy-cm): 111.77 FINDINGS: There is no axillary adenopathy. Multiple small mediastinal nodes. There is no adenopathy. The heart size is normal. There is no pericardial or pleural effusion. Limited images of the upper abdomen are unremarkable. Lung window images demonstrate no suspicious infiltrate or nodule. Mild scarring. There is mild edema. There is a calcified granuloma in the right upper lobe. IMPRESSION: Lung RADS category 1. Recommend 12 month follow-up low-dose chest CT. Reviewed, Interpreted and Dictated by Ran King III, MD Transcribed by Dolly Reynolds Authenticated and [facility]
== END ==
PROVIDERS: PCP Internal Medicine; Visit Provider Internal Medicine
DX: Z87.891 Personal history of nicotine dependence (principal); Z12.2 Encounter for screening for malignant neoplasm of respiratory organs; R05.3 Chronic cough
CPT/HCPCS: 71271

== ENCOUNTER → 2022-07-15 13:25 | Outpatient (CLI) | payer OTHER, SELFPAY | PROVIDERS: PCP Internal Medicine; Visit Provider Internal Medicine | DX: Z79.899 Other long term (current) drug therapy (principal) | CPT/HCPCS: 84443 ==

== ENCOUNTER → 2022-11-29 07:39 | Outpatient (CLI) | payer OTHER, SELFPAY ==
--- NOTE | 2022-11-29 07:42 | MR_ITS ---
FINAL REPORT CLINICAL HISTORY: CERVICAL RADICULOPATHY. RIGHT ARM PAIN P1CPMIK. NUMBNESS IN DIGITS 3-5TH. HEARD A POP IN NECK 4WEEKS AGO FINDINGS: Multi planar MR imaging was obtained of the cervical spine. There is abnormal decreased signal throughout the cervical discs. There is moderate loss of disc height at C3-C4, C5-C6 and C6-C7. The vertebrae are of normal height. There is a minimal spondylolisthesis of C4 on C5 and C6 on C7. The cervical cord demonstrates normal signal and configuration. C2-C3: There is no evidence of significant disc bulge or protrusion. There is no significant facet hypertrophy. C3-C4: There is moderate endplate hypertrophy. There is moderate to high-grade right neural foraminal narrowing. C4-C5: There is asymmetric right facet hypertrophy. There is high-grade right neural foraminal narrowing . Findings are accentuated by spondylolisthesis. C5-C6: There are prominent posterior osteophytes eccentric to the left. There is high-grade bilateral neural foraminal narrowing. C6-C7: There is a diffuse disc bulge with endplate hypertrophy extension weighted by spondylolisthesis. There is high-grade bilateral neural foraminal narrowing. C7-T1: There is a mild diffuse disc bulge with moderate bilateral neural foraminal narrowing. IMPRESSION: Multilevel changes of degenerative disc disease with neural foraminal compromise most evident on the right at C4-C5 and bilaterally at C5-6 and C6-7. Degenerative spondylolisthesis of C4 on C5 and C6 on C7. Reviewed, Interpreted and Dictated by Nico Singh MD Transcribed by Carlyle Todd Authenticated and [facility]
== END ==
PROVIDERS: PCP Internal Medicine; Visit Provider Internal Medicine
DX: M54.12 Radiculopathy, cervical region (principal); M79.601 Pain in right arm
CPT/HCPCS: 72141; 76376

== ENCOUNTER → 2023-01-21 08:11 | Outpatient (CLI) | payer OTHER, SELFPAY ==
[2023-01-21 09:14] LABS: Basophils % 0.6 % (0.1-2.0); Eosinophils # 0.1 K/mm3 (0.0-0.4); Eosinophils % 2.2 % (0.1-12.0); Hematocrit 48.4 % (42.0-52.0); Hemoglobin 15.4 g/dL (14.1-18.0); Lymphocytes # 1.6 K/mm3 (0.7-4.5); Lymphocytes % 30.6 % (10-50); Mean Corpuscular HGB Conc 31.9 g/dL (31.8-35.4); Mean Corpuscular Hemoglobin 30.3 pg (27.0-31.2); Mean Corpuscular Volume 95.2 fl (80-94); Monocytes # 0.4 K/mm3 (0.1-1.0); Monocytes % 7.5 % (1.7-9.3); Neutrophils # 3.1 K/mm3 (1.8-7.8); Neutrophils % 59.1 % (37.0-80.0); Platelet Count 355 K/mm3 (142-424); Red Blood Count 5.09 M/mm3 (4.60-6.20); Red Cell Distribution Width 13.9 % (11.5-17.5); White Blood Count 5.2 K/mm3 (4.8-10.8)
[2023-01-21 09:30] LABS: Alanine Aminotransferase 27 U/L (12-78); Albumin Level 4.2 g/dl (3.5-5.0); Albumin/Globulin Ratio 1.8 (1.1-1.8); Alkaline Phosphatase 88 U/L (38-126); Anion Gap 11.5 mEq/L (5-15); Aspartate Amino Transferase 42 U/L (17-59); Bilirubin,Total 0.3 mg/dl (0.2-1.3); Blood Urea Nitrogen 12 mg/dl (9-20); Carbon Dioxide 29 mmol/L (22.0-30.0); Chloride 100 mmol/L (98-107); Estimated Glomerular Filt Rate 85 ml/min (>60); GFR (African American) 103 ML/MIN (>60); Globulin 2.4 g/dL (1.3-3.2); Glucose 86 mg/dl (74-100); Potassium 4.5 mmoL/L (3.5-5.1); Sodium 136 mmol/L (136-145); Total Protein,Serum 6.6 g/dl (6.3-8.2)
[2023-01-21 09:45] LABS: Free T4 (Free Thyroxine) 1.83 ng/dl (0.78-2.19)
[2023-01-21 10:22] LABS: Erythrocyte Sedimentation Rate 10 mm/hr (0-20)
[2023-01-22 06:47] LABS: Triiodothyronine (T3) Free 3.3 pg/mL (2.0-4.4)
== END ==
PROVIDERS: PCP Internal Medicine; Visit Provider Specialist
DX: G54.0 Brachial plexus disorders (principal); R63.4 Abnormal weight loss; R29.898 Other symptoms and signs involving the musculoskeletal system
CPT/HCPCS: 36415; 80053; 84439; 84443; 84481; 85025; 85651

== ENCOUNTER → 2023-01-24 09:26 | Outpatient (CLI) | payer OTHER, SELFPAY ==
--- NOTE | 2023-01-24 09:27 | MR_ITS ---
FINAL REPORT CLINICAL HISTORY: RT ARM WEAKNESS attention to right brachial plexus per ordering doctor right arm weakness x 10 weeks,unable to do anything with digits 3-5 on the right hand FINDINGS: MRI CHEST W & W/O CONTRAST Limited chest MRI pre and post contrast administration. There is abnormal decreased signal throughout the cervical discs. There is minimal spondylolisthesis of C4 on C5 and C6 on C7. There are diffuse disc bulges at C3-C4, C4-C5, C5-C6 and C6-C7 with significant bilateral neural foraminal narrowing at these levels. The cervical cord demonstrates normal signal and configuration. One parasagittal imaging the nerve roots and brachial plexus are unremarkable without mass or inflammation. There is a partially visualized moderate right shoulder effusion. There is degenerative cyst formation in the bony glenoid. There looks to be a paralabral cyst extending to the spinal glenoid notch, presumed to be paralabral. This measures up to 2.3 cm in greatest dimensions. IMPRESSION: Advanced degenerative disc disease at C3-C4 through C6-C7 with significant bilateral neural foraminal narrowing. Moderate right shoulder effusion with probable underlying supraspinatus tendon tear and associated presumed paralabral cyst extending to the spinoglenoid notch. Dedicated shoulder MRI is recommended for further evaluation. Reviewed, Interpreted and Dictated by Nico Singh MD Transcribed by Carlyle Todd Authenticated and [facility]
--- NOTE | 2023-01-24 10:43 | CT_ITS ---
FINAL REPORT TECHNIQUE: Axial images were obtained through the chest without contrast. This study was performed with techniques to keep radiation doses as low as reasonably achievable (ALARA). Individualized dose reduction techniques using automated exposure control or adjustment of mA and/or kV according to the patient's size were employed. CLINICAL HISTORY: Right arm weakness, brachial plexopathy COMPARISON: 05/11/2022 FINDINGS: There is no evidence of significant cervical mass or adenopathy. There is no evidence of axial mass or adenopathy. There are multiple calcified right paratracheal lymph nodes consistent with old granulomatous disease. There are mild chronic changes at the bases. The lungs are otherwise clear. There is no pleural or pericardial effusion. The gallbladder is contracted. IMPRESSION: Calcified right paratracheal lymph nodes consistent with old granulomatous disease. Please see report of MRI for further details. Reviewed, Interpreted and Dictated by Nico Singh MD Transcribed by Galina Browning Authenticated and [facility]
== END ==
PROVIDERS: PCP Internal Medicine; Visit Provider Specialist
DX: G54.0 Brachial plexus disorders (principal); M47.22 Other spondylosis with radiculopathy, cervical region; M95.8 Other specified acquired deformities of musculoskeletal system; R29.898 Other symptoms and signs involving the musculoskeletal system; R63.4 Abnormal weight loss; Z72.0 Tobacco use
CPT/HCPCS: 71250; 71552; A9576

== ENCOUNTER → 2023-02-07 07:44 | Outpatient (CLI) | payer OTHER, SELFPAY ==
--- NOTE | 2023-02-07 07:44 | MR_ITS ---
FINAL REPORT CLINICAL HISTORY: Right supraspinatus tear. right shoulder pain with loss of movement with 3rd-5th digits. weakness in arm. symptoms x12 weeks FINDINGS: Multiple planar MR imaging of the right shoulder was performed with and without contrast. There is a complete tear of the distal supraspinatus tendon with retraction to the medial humeral head. There is moderate supraspinatus muscle atrophy. There is a high-grade full-thickness tear of the distal infraspinatus tendon. A portion of the inferior tendon appears intact. There is a complete tear of the subscapularis tendon medial to the glenoid. There is mild subscapularis muscle atrophy. There is a large amount of fluid in the joint in the subacromial/subdeltoid bursa. There is moderate AC joint degenerative change. There is remodeling of the undersurface of the acromion. There is superior subluxation of the humerus. There is diffuse labral degeneration without convincing tear. There is a presumed tear of the long head of the biceps tendon with the proximal fragment retracted. There is moderate degenerative change of the glenohumeral joint. There is moderate to severe glenohumeral chondromalacia. There is enhancement of the joint capsule and surrounding soft tissues that is likely inflammatory. There is a presumed 11 mm subcoracoid loose body. IMPRESSION: Complete tears of the supraspinatus and subscapularis tendons with high-grade full-thickness tear of the distal infraspinatus tendon. Presumed tear of the biceps tendon with retraction of the proximal fragment. Moderate degenerative change. 11 mm subcoracoid loose body. Other chronic findings as described Reviewed, Interpreted and Dictated by Ran King III, MD Transcribed by Carlyle Todd Authenticated and . [facility]
== END ==
PROVIDERS: PCP Internal Medicine; Visit Provider Specialist
DX: G54.0 Brachial plexus disorders (principal); R29.898 Other symptoms and signs involving the musculoskeletal system
CPT/HCPCS: 73223; A9576

== ENCOUNTER → 2023-06-28 13:23 | Outpatient (CLI) | payer OTHER, SELFPAY ==
[2023-06-28 14:56] LABS: Basophils % 0.5 % (0.1-2.0); Eosinophils # 0.1 K/mm3 (0.0-0.4); Eosinophils % 1.5 % (0.1-12.0); Hematocrit 44.8 % (42.0-52.0); Hemoglobin 15.1 g/dL (14.1-18.0); Lymphocytes # 1.6 K/mm3 (0.7-4.5); Lymphocytes % 24.8 % (10-50); Mean Corpuscular HGB Conc 33.6 g/dL (31.8-35.4); Mean Corpuscular Hemoglobin 31.1 pg (27.0-31.2); Mean Corpuscular Volume 92.6 fl (80-94); Mean Platelet Volume 8.5 fl (7.4-10.4); Monocytes # 0.4 K/mm3 (0.1-1.0); Monocytes % 5.5 % (1.7-9.3); Neutrophils # 4.4 K/mm3 (1.8-7.8); Neutrophils % 67.7 % (37.0-80.0); Platelet Count 288 K/mm3 (142-424); Red Blood Count 4.85 M/mm3 (4.60-6.20); Red Cell Distribution Width 14.6 % (11.5-17.5); White Blood Count 6.5 K/mm3 (4.8-10.8)
[2023-06-28 15:51] LABS: Alanine Aminotransferase 27 U/L (12-78); Albumin Level 4.3 g/dl (3.5-5.0); Albumin/Globulin Ratio 1.7 (1.1-1.8); Alkaline Phosphatase 76 U/L (38-126); Anion Gap 11.7 mEq/L (5-15); Aspartate Amino Transferase 39 U/L (17-59); Bilirubin,Total 0.4 mg/dl (0.2-1.3); Blood Urea Nitrogen 12 mg/dl (9-20); Calcium 9.1 mg/dl (8.4-10.2); Carbon Dioxide 28 mmol/L (22.0-30.0); Chloride 99 mmol/L (98-107); Chol/HDL Ratio 2.5 (1-3.5); Cholesterol 153 mg/dl (140-200); Estimated Glomerular Filt Rate 97 ml/min (>60); GFR (African American) 118 ML/MIN (>60); Globulin 2.6 g/dL (1.3-3.2); Glucose 80 mg/dl (74-100); HDL Cholesterol 62 mg/dl (40-60); Potassium 4.7 mmoL/L (3.5-5.1); Sodium 134 mmol/L (136-145); Total Protein,Serum 6.9 g/dl (6.3-8.2); Triglycerides 121 mg/dl (30-150); VLDL Cholesterol 24 mg/dL (0-40)
[2023-06-28 16:02] LABS: Direct LDL Cholesterol 71.74 mg/dL (100-129)
[2023-06-28 16:08] LABS: 25-OH Vitamin D, Total 60.2 ng/mL (30-100)
[2023-06-28 16:20] LABS: Thyroid Stimulating Hormone 1.23 uIU/mL (0.465-4.68)
[2023-06-28 16:39] LABS: Vitamin B12 294 pg/mL (239-931)
== END ==
PROVIDERS: PCP Internal Medicine; Visit Provider Internal Medicine
DX: I10 Essential (primary) hypertension (principal); M47.812 Spondylosis without myelopathy or radiculopathy, cervical region; M47.817 Spondylosis without myelopathy or radiculopathy, lumbosacral region; M15.0 Primary generalized (osteo)arthritis; Z86.39 Personal history of other endocrine, nutritional and metabolic disease; E78.5 Hyperlipidemia, unspecified; E03.9 Hypothyroidism, unspecified; Z72.0 Tobacco use
CPT/HCPCS: 80053; 80061; 82306; 82607; 84443; 85025

== ENCOUNTER 2023-12-29 13:03 | Outpatient (CLI) | payer OTHER, SELFPAY ==
[2023-12-29 14:27] LABS: Alanine Aminotransferase 25 U/L (12-78); Albumin Level 4.3 g/dl (3.5-5.0); Alkaline Phosphatase 76 U/L (38-126); Anion Gap 8.7 mEq/L (5-15); Aspartate Amino Transferase 37 U/L (17-59); Bilirubin,Total 0.5 mg/dl (0.2-1.3); Blood Urea Nitrogen 19 mg/dl (9-20); Calcium 9.2 mg/dl (8.4-10.2); Carbon Dioxide 28 mmol/L (22.0-30.0); Chloride 105 mmol/L (98-107); Cholesterol 187 mg/dl (140-200); Estimated Glomerular Filt Rate 85 ml/min (>60); GFR (African American) 103 ML/MIN (>60); Globulin 2.2 g/dL (1.3-3.2); Glucose 73 mg/dl (74-100); Potassium 4.7 mmoL/L (3.5-5.1); Sodium 137 mmol/L (136-145); Total Protein,Serum 6.5 g/dl (6.3-8.2); Triglycerides 65 mg/dl (30-150); VLDL Cholesterol 13 mg/dL (0-40)
[2023-12-29 14:34] LABS: Chol/HDL Ratio 1.8 (1-3.5); HDL Cholesterol 102 mg/dl (40-60)
[2023-12-29 14:39] LABS: Direct LDL Cholesterol 84.67 mg/dL (100-129)
[2023-12-29 14:59] LABS: Prostate Specific Ag Screen 0.9 ng/ml (0.0-4.0); Thyroid Stimulating Hormone 4.65 uIU/mL (0.465-4.68)
== END 2023-12-29 23:59 | disposition home or self-care (01) ==
LOC: LAB.DROPOF 13:04
PROVIDERS: PCP Internal Medicine; Visit Provider Internal Medicine
DX: E03.9 Hypothyroidism, unspecified (principal); E78.5 Hyperlipidemia, unspecified; M47.812 Spondylosis without myelopathy or radiculopathy, cervical region; M47.817 Spondylosis without myelopathy or radiculopathy, lumbosacral region; M15.0 Primary generalized (osteo)arthritis; M75.102 Unspecified rotator cuff tear or rupture of left shoulder, not specified as traumatic; Z12.5 Encounter for screening for malignant neoplasm of prostate; E16.2 Hypoglycemia, unspecified
CPT/HCPCS: 80053; 80061; 84443; G0103

== ENCOUNTER 2024-07-31 08:55 | Outpatient (CLI) | payer MEDICARE, SELFPAY ==
[2024-07-31 12:48] LABS: Basophils % 0.5 % (0.1-2.0); Eosinophils % 0.3 % (0.1-12.0); Hematocrit 46.5 % (42.0-52.0); Hemoglobin 15.8 g/dL (14.1-18.0); Mean Corpuscular HGB Conc 33.9 g/dL (31.8-35.4); Mean Corpuscular Hemoglobin 30.9 pg (27.0-31.2); Mean Corpuscular Volume 91.1 fl (80-94); Mean Platelet Volume 7.4 fl (7.4-10.4); Monocytes # 0.2 K/mm3 (0.1-1.0); Monocytes % 2.9 % (1.7-9.3); Neutrophils # 6.7 K/mm3 (1.8-7.8); Neutrophils % 83.2 % (37.0-80.0); Platelet Count 316 K/mm3 (142-424); Red Cell Distribution Width 14.6 % (11.5-17.5)
[2024-07-31 13:11] LABS: Alanine Aminotransferase 28 U/L (12-78); Albumin Level 4.2 g/dl (3.5-5.0); Albumin/Globulin Ratio 1.8 (1.1-1.8); Alkaline Phosphatase 113 U/L (38-126); Anion Gap 12.8 mEq/L (5-15); Aspartate Amino Transferase 39 U/L (17-59); Bilirubin,Total 0.5 mg/dl (0.2-1.3); Blood Urea Nitrogen 24 mg/dl (9-20); Calcium 9.1 mg/dl (8.4-10.2); Carbon Dioxide 26 mmol/L (22.0-30.0); Chloride 99 mmol/L (98-107); Chol/HDL Ratio 1.9 (1-3.5); Cholesterol 209 mg/dl (140-200); Estimated Glomerular Filt Rate 85 ml/min (>60); GFR (African American) 102 ML/MIN (>60); Globulin 2.3 g/dL (1.3-3.2); Glucose 92 mg/dl (74-100); HDL Cholesterol 109 mg/dl (40-60); Potassium 4.8 mmoL/L (3.5-5.1); Sodium 133 mmol/L (136-145); Total Protein,Serum 6.5 g/dl (6.3-8.2); Triglycerides 56 mg/dl (30-150); VLDL Cholesterol 11 mg/dL (0-40)
[2024-07-31 13:22] LABS: Direct LDL Cholesterol 83.97 mg/dL (100-129)
== END 2024-07-31 23:59 | disposition home or self-care (01) ==
LOC: LAB.DROPOF 08-01 09:24
PROVIDERS: PCP Internal Medicine; Visit Provider Internal Medicine
DX: I10 Essential (primary) hypertension (principal); E03.9 Hypothyroidism, unspecified; E78.5 Hyperlipidemia, unspecified; L57.0 Actinic keratosis; J44.1 Chronic obstructive pulmonary disease with (acute) exacerbation
CPT/HCPCS: 80053; 80061; 84443; 85025

== ENCOUNTER 2024-08-30 09:30 | Day surgery (SDC) | payer MEDICARE, SELFPAY ==
[2024-08-27 09:34] VITALS: BMI 18.3
--- NOTE | 2024-08-30 09:36 | P.PCN_ITS ---
Procedure: Date: 08/30/24 Patient Date of :: 1960 Procedure Performed:: Colonoscopy to terminal ileum with polypectomy Indications:: Patient is a 64-year-old male who presents for follow-up surveillance c olonoscopy. He had undergone colonoscopy in [address] Mishra which was normal. There is a possible family history of colon cancer in his grandfather. 5-year follow-up colonoscopy was recommended. I performed colonoscopy on 08/11/2020 and he had 3 tubular adenomas but most notable was a large rectal tubulovillous adenoma measuring about 25 mm. 1 year follow-up colonoscopy was recommended after his colonoscopy on 08/11/2020. . Performing Provider:: Ran Garrison MD Referring Provider:: Micheal Saxena MD . Sedation:: MAC sedation Procedure:: Patient history was obtained and appropriate physical examination was performed. Patient's medications and allergies were reviewed. Informed consent was obtained after explaining the benefits, alternatives, and risks of the procedure including, but not limited to, bleeding, perforation, missed lesions, and adverse reaction to anesthesia medications. Patient was transported to endoscopy procedure room. Patient was connected to monitoring devices. Throughout the procedure the patient's blood pressure, pulse, and oxygen saturations were monitored continuously. Patient identification and planned procedure were verified by the staff. Patient was positioned in lateral decubitus position. Digital anorectal exam was performed. Variable stiffness Olympus colonoscope was inserted and advanced under direct visualization to the cecum. Adequacy of the colonic preparation was noted. The colonoscope was advanced a short distance into the terminal ileum. The colonoscope was then slowly withdrawn while carefully examining the color, texture, anatomy, and integrity of the mucosoa circumferentially. Within the rectum retroflexion was performed. Colonoscope was then withdrawn. Impression: There was some particulate liquid stool throughout the colon which was suctioned free with high-volume trans colonoscopic irrigation and suctioning. At the hepatic flexure there was a relatively large sessile polyp likely measuring about 20 mm. Chantel view was injected submucosally to raise the polyp. Ultimately it was removed with hot snare. It appeared to be removed in its entirety. It required maceration using the Gleason net for retrieval. Casie ink was injected in the region to kenna the area for future reference. There was some oozing at the site and consideration is being given for clip deployment. However this had spontaneously stopped. There was noted to be a small adenomatous appearing polyp in the general region. This was lost initially to visualization and with repeated reinsertion and withdrawal of the colonoscope was ultimately noted along the ridge at the hepatic flexure and removed with cold snare. Colonoscope was slowly withdrawn and in the descending colon there was a small polyp removed with cold snare. He had significant sigmoid diverticulosis. Please note the procedure duration 68 minutes. . Findings:: Polyps as noted above, most notable hepatic flexure sessile polyp #1 removed with hot snare Significant sigmoid diverticulosis. Recommendations:: Repeat colonoscopy pending pathology. Likely within a year. Complications:: None immediately apparent Estimated blood obtained (mL): 3 Colonoscopy Component Colonoscopy Component Was a colonoscopy performed during today's procedure?: Yes Recommended follow up colonoscopy of at least 10 years?: No If no, follow up colonoscopy recommended in ___ years?: 1 Reason for not recommending >/= 10 yr follow-up interval?: See above
[2024-08-30 09:43] VITALS: BP 153/82; PULSE 79; RESP 18; TEMP 36.6; O2SAT 97
[2024-08-30] MEDS: LACTATED RINGERS 1000ML 1,000 ML 25 ML IV (09:50)
[2024-08-30 09:56] VITALS: O2SAT 99
--- NOTE | 2024-08-30 09:59 | P.PNANES_ITS ---
[facility] Disclaimer: The information contained in this section may have been updated after the patient was seen, as this information can be updated by other users. Medical History Hyperthyroidism Hyperlipidemia Hypertension Injury of right rotator cuff Right arm weakness Surgical History History of left shoulder replacement Family History Other Colon cancer Diabetes Heart attack Lung cancer Social History (Updated 08/30/24 @ 09:49 by Vivien Leiva RN) Smoking Status: Current every day smoker tobacco type: cigarettes packs per day: 1 second hand exposure: No alcohol intake: never substance use type: denies use current occupational status: employed Travel in the last 8 weeks: None housing: house current occupation: self current occupational exposures/hazards: No caffeine: Yes Have you lived/traveled outside US in past 30 days?: No Contact w/someone who lives/traveled outside US past 30 days?: No Exposure to someone with infectious disease in past 14 days?: No Do you have a fever (greater than 100.4 F or 38 C)?: No Have you tested positive for COVID-19: No Exposed to someone with COVID-19 in past 14 days?: No Do you have a sore throat?: No Do you have a cough?: No Do you have any weakness?: No Are you experiencing any nausea/vomitting?: No Do you have any diarrhea?: No Are you experiencing any unusual bleeding?: No Do you have any muscle aches/pain?: No Do you have any abdominal pain?: No Are you experiencing loss of taste or smell?: No [facility] Anesthesia Checklist Patient Identification Patient Identification: Verbal (Name & ) Structural Data Admitted From: Home Planned Operative Procedure/s: colonoscopy Consent for Planned Operative Procedure(s) Verified: Yes NPO Status Verified Time NPO: 00:00 Additional verifications Anesthesia Reactions: No Hx Blood Transfusions: No Blood Transfusion Reaction: No Airway Assessment Mallampati Score:: Class II C-Spine Mobility Assessed: Yes TMJ Mobility Assessed: Yes Dentition: Good Dentition Neurological Assessment Level of Consciousness: Awake, Alert and Appropriate Anesthesia Plan Anesthesia Risk discussed: Yes Anesthesia Plan: Verified ASA Class: II Anesthesia Type: MAC
[2024-08-30 11:15] VITALS: BP 148/83; PULSE 77; RESP 18; TEMP 37; O2SAT 94
[2024-08-30 11:25] VITALS: BP 137/84; PULSE 62; RESP 18; TEMP 37; O2SAT 96
[2024-08-30 11:35] VITALS: BP 160/68; PULSE 65; RESP 18; TEMP 37; O2SAT 96
[2024-08-30 11:39] VITALS: BP 141/81; PULSE 66; RESP 18; TEMP 37; O2SAT 97
== END 2024-08-30 11:45 | disposition home or self-care (01) ==
PROVIDERS: PCP Internal Medicine; Visit Provider Surgery
PROC: 0DJD8ZZ Inspection of Lower Intestinal Tract, Via Natural or Artificial Opening Endoscopic (ICD-10-PCS; CPT 45381; principal; 2024-08-30 10:35)
DX: D12.3 Benign neoplasm of transverse colon (principal); K63.5 Polyp of colon; K57.30 Diverticulosis of large intestine without perforation or abscess without bleeding; Z86.0101 Personal history of adenomatous and serrated colon polyps
CPT/HCPCS: 45381; 45385; J2704; J7120

== ENCOUNTER 2025-05-20 06:55 | Day surgery (SDC) | payer MEDICARE, SELFPAY ==
[2025-05-20] VITALS (7 sets, daily range): BP systolic 134–211; BP diastolic 72–102; PULSE 45–67; RESP 16–18; TEMP 36.2–36.3; O2SAT 98–100; BMI 18.6
[2025-05-20] MEDS: TETRACAINE 0.5% OPTH SOL 15ML OP ×3 (07:25→07:26)
[2025-05-20] MEDS: PHENYLEPHRINE 2.5% OPHTH SOLN 2ML OP ×3 (07:25→07:26)
[2025-05-20] MEDS: CYCLOPENTOLATE 2% OPHTH SOLN 2ML BOTTLE OP ×3 (07:25→07:27)
[2025-05-20] MEDS: MIDAZOLAM 2MG/2ML VIAL 1 MG IV (08:48)
[2025-05-20] MEDS: LIDOCAINE 1% PF 2ML VIAL 2 ML IJ (08:48)
[2025-05-20] MEDS: TOBRAMYCIN/DEX OPTH SUSP 2.5ML OP (08:48)
[2025-05-20] MEDS: TIMOLOL 0.5% OPTH SOLN 5ML OP (08:49)
--- NOTE | 2025-05-20 11:47 | [facility].PROCNOTE ---
[facility] Procedure Note Date: 05/20/25 Time: 11:47 Procedure Note:: Preoperative Diagnosis: Cataract combined NS Cortical Complex [Left] Eye Postop diagnosis: same Operation: Microscopic phacoemulsification with intraocular lens implant [Left] Eye Specimen: None Blood Loss: None The patient was examined in the office with a complaint of poor vision in the [left] eye. The patient reports that this interferes with ADLs such as reading, watching TV and/or driving or the vision is like looking through a foggy haze and is very troubling. The patient was examined and found to have a visually significant cataract with best corrected vision of [20/400] by refraction and/or glare testing. Treatment options, risks and benefits were explained and the patient elected to have cataract surgery in an attempt to improve their vision. The patient had the eye anesthetized with topical tetracaine, the eye ways prepped and draped in the usual fashion for cataract surgery. A paracentesis and a temporal keratotomy were made. 0.2cc of 1% lidocaine PF was placed into the anterior chamber. And aqueous/viscoelastic exchange was done and a 360 degree capsulorexis was performed. Through hydrodissection and delineation with BSS on a cannula was done. The lens nucleus was phecoemulsified with CDE of [5.63]. Residual cortical material was removed using automated I&A The capsular bag was deepened with viscoelastica and a PCIOL was placed in the capsular bag with good centration and stability. Residual viscoelastic was removed using automated I&A. The keratotomy incision was hydrated with BSS on a cannula. The wound were checked and found to be water tight. IOP was checked digitally and adjusted as needed so as not to be too high. 1 drop of timolol 0.5%, ofloxacin, prednisolone acetate and ketorolac was instilled and eye shield taped over the eye. The patient was taken to recovery in good condition and will be seen postoperatively.
== END 2025-05-20 09:14 | disposition home or self-care (01) ==
PROVIDERS: PCP Internal Medicine; Visit Provider Ophthalmology
DX: H25.812 Combined forms of age-related cataract, left eye (principal); I10 Essential (primary) hypertension; E78.5 Hyperlipidemia, unspecified; E05.90 Thyrotoxicosis, unspecified without thyrotoxic crisis or storm; F17.210 Nicotine dependence, cigarettes, uncomplicated; Z79.899 Other long term (current) drug therapy
CPT/HCPCS: 66984; J2250; V2632

== ENCOUNTER 2025-06-03 14:34 | Outpatient (CLI) | payer MEDICARE, SELFPAY ==
--- OUTSIDE RECORDS SUMMARY | 2025-05-08 08:40 | XMS_ITS | Encounter Summary ---
Author Organization Healthcare Address [address] [id number] Care Team Providers Care Tech Writer Name Role Phone Micheal Saxena MD Primary Care Provider [phone] Reason for Referral * Other Medical (Routine) - Pending Review Specialty Diagnoses / Procedures Referred By Deann méndez Referred To Contact Diagnoses Rotator cuff tear arthropathy of both shoulders Procedures Injection - Large Joint: bilateral subacromial bursa Lokesh Lopez MD [address] [place] [address] Phone: tel: fax: Referral ID Status Reason Start Date Expiration Date V isits Requested Visits Authorized [id number] Pending Review 05/08/2025 11/07/2026 1 1 Reason for Visit * Reason Comments Follow-up Injections Follow-up Injections Encounter Details Date Type Department Care Team (Late st Contact Info) Description 05/08/2025 8:40 AM EDT Office Visit [facility] [address], [address] [place] [address] Lokesh Lopez MD [address] [place] [address] Rotator cuff tear arthropathy of both shoulders (Primary Dx) Social History Tobacco Use Types Packs/Day Years Used Date Smoking Tobacco: Every Day Smokeless Tobacco: Never Tobacco Cessation:Ready to Q uit: Not Asked; Counseling Given: Not Answered Alcohol Use Standard Drinks/Week Comments Not Currently 0 (1 standard drink = 0.6 oz pure alcohol) Alcoholic Drinks/day: History of alcohol use PHQ-2 Answer Date Recorded Patient Health Questionnaire-2 Score 0 12/15/2022 PHQ-2A Answer Date Recorded Patient Health Questionnaire-2 Score 0 12/15/2022 Sex and Gender Information Value Date Recorded Sex Assigned at Not on file Legal Sex Male 8:11 PM EDT Gender Identity Not on file Sexual Orientation Not on file documented as of this encounter Last Filed Vital Signs Vital Sign Reading Time Taken Comments Blood Pressure 131/79 05/08/2025 8:25 AM EDT Pulse - - Temperature - - Respiratory Rate - - Oxygen Saturation - - Inhaled Oxygen Concentration - - Weight 61.2 kg (135 lb) 05/08/2025 8:25 AM EDT Height 177.8 cm (5' 10 ) 05/08/2025 8:25 AM EDT Body Mass Index 19.37 05/08/2025 8:25 AM EDT documented in this encounter Miscellaneous Notes * Progress Notes - Lokesh Lopez MD - 05/08/2025 8:40 AM EDTAssociated Order(s): Injection - Large Joint: bilateral subacromial bursa Post-Procedure Diagnose(s): Rotator cuff tear arthropathy of both shoulders History of present illness: Alfonso Aguilera is a 64 y.o. male here for re- evaluation of his bilateral shoulders. Patient has a history of rotator cuff arthropathy and occasionally comes in for injections into his shoulders. He notes good relief for several months until recently. His primary complaint is pain and difficulty with motion in his shoulders. This is overall unchanged. 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 When we last saw him he was considering having a left shoulder reverse arthroplasty done by Dr. Silverman. He has decided he can not yet do that as he has some things totake care of but will consider it in the future. He does not plan on having shoulder arthroplasty in the next few months. Objective: Constitutional: Well developed, well nourished, no acute distress HEENT: mucous membranes moist, normocephalic atraumatic Psychologic: appropriate mood and affect Chest: bilateral chest elevations, symmetric Cardiovascular: pink extremities, peripheral perfusion intact Respiratory: no respiratory distress, nonlabored on room air Abdomen: soft, nontender Neurologic: orientation to person, place and time Bilateral SHOULDER EXAM No obvious atrophy or deformity. No scapular dyskinesia. Patient has tenderness about the anterolateral shoulder. Active elevation is 160??, external rotation at the side 60??, internal rotation to lower lumbar region. There is slightly limited passive range of motion. There is pain with elevation and resisted strength testing. There is moderate weakness to supraspinatus testing. The patient has a painful arc of abduction and positive impingement signs. There is a negative speed's. There is no significant pain with cross-arm adduction. Distal neurovascular exam is normal. The patient has a warm and well-perfused upper extremity with capillary refill less than 2 seconds.Sensation is intact to light touch in terminal nerve distributions. The patient has no palpable epitrochlear lymphadenopathy. Imaging: X-Rays: Right shoulder x-rays are personally reviewed. He has severe rotator cuff tear arthropathy with anterior superior migration of the humeral head. Left shoulder x-rays are personally reviewed. He has severe rotator cuff tear arthropathy with significant glenohumeral arthritis and superior migration of the humeral head. Procedures: Injection - Large Joint: bilateral subacromial bursa on 05/08/2025 9:15 AM Indications: pain Details: 22 G needle, posterior approach Medications (Right): 20 mg bupivacaine 0.5 %; 40 mg lidocaine 1 %; 80 mg Kenalog-40 40 MG/ML Medications (Left): 20 mg bupivacaine 0.5 %; 40 mg lidocaine 1 %; 80 mg Kenalog- 40 40 MG/ML Outcome: tolerated well, no immediate complications Procedure, treatment alternatives, risks and benefits explained, specific risks discussed (Specificrisks included flare reaction, increased pain, increased stiffness, injury to surrounding tissues, increased risk of infection, and risk of elevated glucose level.). Consent was given by the patient.Immediately prior to procedure a time out was called to verify the correct patient, procedure, equipment, technical customer support specialist and site/side marked as required. Patient was prepped and draped in the usual sterile fashion. Assessment/Plan: Bilateral shoulder rotator cuff arthropathy. We discussed treatment options. He has now retired and will consider shoulder arthroplasty in the near future. However he can not yet undergo surgery due to some issues he needs to continue to take care of. Decision was made to proceed with bilateral shoulder subacromial injections today. We discussed the risks and benefits of injection, including the risk of worsening pain and/or infection. Decision was made to proceed with bilateral subacromial injections. He tolerated these well. He will continue with activities as tolerated. We will see him back in 3-4 months for re-evaluation. He will consider reverse shoulder arthroplasty in the future. documented in this encounter Plan of Treatment Upcoming Encounters Date Type Department Care Team (Late st Contact Info) Description 08/07/2025 9:20 AM EST Office Visit [facility] [address], [address] [place] [address] Lokesh Lopez MD [address] [facility] [address] [place] [address] documented as of this encounter Goals Goal Patient Goal Type Associated Problems Recent Progress Patient-Stated? Author Patient will verbalize understanding of orthotic wear , care and precautions. Occupational Therapy Mary Bonner documented as of this encounter Procedures Procedure Name Priority Date/Time Associated Diagnosis Comments IA ARTHROCENTESIS ASPIR&/INJ MAJOR JT/BURSA W/O US Routine 05/08/2025 9:15 AM EDT Rotator cuff tear arthropathy of both shoulders documented in this encounter Results * IA ARTHROCENTESIS ASPIR&/INJ MAJOR JT/BURSA W/O US (05/08/2025 9:15 AM EDT) Narrative Lokesh Lopez MD - 05/08/2025 9:15 AM EDT Lokesh Lopez MD 05/08/2025 5:34 PM Injection - Large Joint: bilateral subacromial bursa on 05/08/2025 9:15 AM Indications: pain Details: 22 G needle, posterior approach Medications (Right): 20 mg bupivacaine 0.5 %; 40 mg lidocaine 1 %; 80 mg Kenalog-40 40 MG/ML Medications (Left): 20 mg bupivacaine 0.5 %; 40 mg lidocaine 1 %; 80 mg Kenalog-40 40 MG/ML Outcome: tolerated well, no immediate complications Procedure, treatment alternatives, risks and benefits explained, specific risks discussed (Specific risks included flare reaction, increased pain, increased stiffness, injury to surrounding tissues, increased risk of infection, and risk of elevated glucose level.). Consent was given by the patient. Immediately prior to procedure a time out was called to verify the correct patient, procedure, equipment, technical customer support specialist and site/side marked as required. Patient was prepped and draped in the usual sterile fashion. us Lokesh Lopez MD IN CLINIC/BEDSIDE ORDERABLES Fin al Result documented in this encounter Visit Diagnoses Diagnosis Rotator cuff tear arthropathy of both shoulders- Primary documented in this encounter Administered Medications Inactive Administered Medications - up to 3 most recent administrations Medication Order MAR Action Action Date Dose Rate Site bupivacaine (Marcaine) 0.5 % injection 20 mg 20 mg, Injection, Once PRN Procedure, 1 dose, Starting on Janneth 05/08/25 at 0915, Until Janneth 05/08/25 at 0915, RoutineIndications:Rotator cuff tear arthropathy of both shoulders Given 05/08/2025 9:15 AM EDT 20 mg bupivacaine (Marcaine) 0.5 % injection 20 mg 20 mg, Injection, Once PRN Procedure, 1 dose, Starting on Janneth 05/08/25 at 0915, Until Janneth 05/08/25 at 0915, RoutineIndications:Rotator cuff tear arthropathy of both shoulders Given 05/08/2025 9:15 AM EDT 20 mg lidocaine (Xylocaine) 1 % injection 40 mg 40 mg, Intra-articular, Once PRN Procedure, 1 dose, Starting on Janneth 05/08/25 at 0915, Until Janneth 05/08/25 at 0915, RoutineIndications:Rotator cuff tear arthropathy of both shoulders Given 05/08/2025 9:15 AM EDT 40 mg lidocaine (Xylocaine) 1 % injection 40 mg 40 mg, Intra-articular, Once PRN Procedure, 1 dose, Starting on Janneth 05/08/25 at 0915, Until Janneth 05/08/25 at 0915, RoutineIndications:Rotator cuff tear arthropathy of both shoulders Given 05/08/2025 9:15 AM EDT 40 mg triamcinolone acetonide (Kenalog-40) injection 80 mg 80 mg, Intra-articular, Once PRN Procedure, 1 dose, Starting on Janneth 05/08/25 at 0915, Until Janneth 05/08/25 at 0915, RoutineIndications:Rotator cuff tear arthropathy of both shoulders Given 05/08/2025 9:15 AM EDT 80 mg triamcinolone acetonide (Kenalog-40) injection 80 mg 80 mg, Intra-articular, Once PRN Procedure, 1 dose, Starting on Janneth 05/08/25 at 0915, Until Janneth 05/08/25 at 0915, RoutineIndications:Rotator cuff tear arthropathy of both shoulders Given 05/08/2025 9:15 AM EDT 80 mg documented in this encounter Additional Health Concerns Assessment Noted Time A fall risk assessment has been complete d for the patient 05/08/2025 8:24 AM EDT A Body Mass Index follow-up plan has been documented for the patient 05/08/2025 5:34 PM EDT documented as of this encounter Care Teams Tech Writer Relationship Specialty Start Date End Date Micheal Saxena MD [address] [place] [address] [address] [place] [address] PCP - General 01/08/21 documented as of this encounter
[2025-06-03 13:40] LABS: Hematocrit 42.7 % (42.0-52.0); Hemoglobin 14.3 g/dL (14.1-18.0); Immature Granulocytes % 0.2 %; Mean Corpuscular HGB Conc 33.5 g/dL (31.8-35.4); Mean Corpuscular Hemoglobin 30.4 pg (27.0-31.2); Mean Corpuscular Volume 90.9 fl (80-94); Nucleated Red Blood Cells % 0 %; Platelet Count 245 K/mm3 (142-424); Red Blood Count 4.70 M/mm3 (4.60-6.20); Red Cell Distribution Width-SD 51.3 fL; White Blood Count 5.4 K/mm3 (4.8-10.8)
[2025-06-03 14:18] LABS: Alanine Aminotransferase 20 U/L (12-78); Alkaline Phosphatase 76 U/L (38-126); Aspartate Amino Transferase 36 U/L (17-59); Bilirubin,Total 0.4 mg/dl (0.2-1.3); Blood Urea Nitrogen 8 mg/dl (9-20); Calcium 9.1 mg/dl (8.4-10.2); Carbon Dioxide 28 mmol/L (22.0-30.0); Cholesterol 182 mg/dl (140-200); Creatinine,Serum 0.80 mg/dl (0.66-1.25); Estimated Glomerular Filt Rate 97 ml/min (>60); GFR (African American) 117 ML/MIN (>60); Glucose 68 mg/dl (74-100); Total Protein,Serum 6.6 g/dl (6.3-8.2); Triglycerides 102 mg/dl (30-150)
[2025-06-03 14:19] LABS: HDL Cholesterol 82 mg/dl (40-60)
--- OUTSIDE RECORDS SUMMARY | 2025-06-03 14:36 | XMS_ITS | Encounter Summary ---
Author Organization Healthcare Address [address] [id number] Care Team Providers Care Equine Breeder Name Role Phone Micheal Saxena MD Primary Care Provider [phone] Encounter Details Date Type Department Care Team (Latest Contact Info) Description 05/08/2025 Travel Social History Tobacco Use Types Packs/Day Years Used Date Smoking Tobacco: Every Day Smokeless Tobacco: Never Alcohol Use Standard Drinks/Week Comments Not Currently [...] on file documented as of this encounter Plan of Treatment Upcoming Encounters Date Type Department Care Team (Late st Contact Info) Description 08/07/2025 9:20 AM EST Office Visit [facility] Orthopaedic Surgery & Sports Medicine [address] [facility], [address] [place] [address] Lokesh Lopez MD [address] [facility] [facility] [address] [place] [address] documented as of this encounter Goals Goal Patient Goal Type Associated Problems Recent Progress Patient-Stated? Author Patient will verbalize understanding of orthotic wear , care and precautions. Occupational Therapy No Mary Malcolm documented as of this encounter Visit Diagnoses Not on filedocumented in this encounter Additional Health Concerns Assessment Noted Time A fall risk assessment has been complete d for the patient 05/08/2025 8:24 AM EDT A Body Mass Index follow-up plan has been documented for the patient 05/08/2025 5:34 PM EDT documented as of this encounter Care Teams Equine Breeder Relationship Specialty Start Date End Date Micheal Saxena MD [address] [place] [id number] PCP - General 01/08/21 documented as of this encounter
--- OUTSIDE RECORDS SUMMARY | 2025-06-03 14:36 | XMS_ITS | Encounter Summary ---
Author Organization Healthcare Address [address] [id number] Care Team Providers Care Casing Crew Pusher Name Role Phone Micheal Saxena MD Primary Care Provider [phone] Encounter Details Date Type Department Care Team ([facility] Contact Info) Description 02/07/2023 Orders Only External Location [address] [place] [address] Provider, External Social History Tobacco Use Types Packs/Day Years [...] Encounters Date Type Department Care Team (Late Contact Info) Description 08/07/2025 9:20 AM EST Office Visit [facility] Orthopaedic Surgery & Sports Medicine [address] , [address] [place] [address] Lokesh Lopez MD [address] [place] [address] documented as of this encounter Goals Goal Patient Goal Type Associated Problems Recent Progress Patient-Stated? Author Patient will verbalize understanding of orthotic wear , care and precautions. Occupational Therapy No Mary Malcolm documented as of this encounter Procedures Procedure Name Priority Date/Time Associated Diagnosis Comments MR SHOULDER RIGHT W AND WO IV CONTRAST 02/07/2023 7:48 AM EDT documented in this encounter Results * MR Shoulder Right w and wo IV Contrast (02/07/2023 7:48 AM EDT) Anatomical Region Laterality Modality Upper Extremities Right Magnetic Reson ance 02/07/2023 7:48 AM EDT us External Provider IMG MRI PROCEDURES Final Resul t documented in this encounter Visit Diagnoses Not on filedocumented in this encounter Additional Health Concerns Assessment Noted Time A fall risk assessment has been complete d for the patient 12/15/2022 11:01 AM EDT documented as of this encounter Care Teams Casing Crew Pusher Relationship Specialty Start Date End Date Micheal Saxena MD [address] [place] [address] [address] [place] [address] PCP - General 01/08/21 documented as of this encounter
--- OUTSIDE RECORDS SUMMARY | 2025-06-03 14:36 | XMS_ITS | Encounter Summary ---
Author Organization Healthcare Address [address] [place] [address] Care Team Providers Care Certified Court/Medical Interpreter Name Role Phone Micheal Saxena MD Primary Care Provider [phone] Encounter Details Date Type Department Care Team (Late st Contact Info) Description 04/29/2025 Telephone [facility] Orthopaedic Surgery & Sports Medicine [address] , [address] [place] [address] Frankie Silverman MD [address] [facility] [address] [place] [address] Social History Tobacco Use Types Packs/Day Years [...] on file documented as of this encounter Miscellaneous Notes * Telephone Encounter - Pat [place]ide - 04/29/2025 1:09 PM EDT PLEASE CALL PAT TO RESCHEDULE YOUR CT documented in this encounter Plan of Treatment Upcoming Encounters Date Type Department Care Team (Late st Contact Info) Description 08/07/2025 9:20 AM EST Office Visit [facility] Orthopaedic Surgery & Sports Medicine [address] , [address] [place] [address] Lokesh Lopez MD [address] [facility] [address] [place] [address] documented as of this encounter [...] has been complete d for the patient 04/01/2025 8:23 AM EDT A Body Mass Index follow-up plan has been documented for the patient 04/01/2025 10:04 AM EDT documented as of this encounter Care Teams Certified Court/Medical Interpreter Relationship Specialty Start Date End Date Micheal Saxena MD [address] [facility] [address] [place] [address] PCP - General 01/08/21 documented as of this encounter
--- OUTSIDE RECORDS SUMMARY | 2025-06-03 14:36 | XMS_ITS | Clinical Summary ---
Author Organization Healthcare Address [address] [place] [address] Care Team Providers Care Sugar Grinder Name Role Phone Micheal Saxena MD Primary Care Provider [phone] Allergies No known active allergies Medications atorvastatin (Lipitor) 40 MG tablet 7 Active cholecalciferol (Vitamin D-3) 50 MCG (1999) tablet 8 Active lisinopril 2.5 MG tablet 7 Active HYDROcodone-jasvir taminophen (Kinross) 10-325 MG tablet 2 Active levothyroxine (Synthroid, Levoxyl) 137 MCG tablet 2 Active famotidine (Pepcid) 20 MG tablet 3 Active ibuprofen 800 MG tablet 3 Active oxyCODONE (Roxicodone) 10 MG immediate release tablet 3 Active methylPREDNISol one (Medrol Dospak) 4 MG tabletsIndicati ons:Chronic left shoulder pain,Left rotator cuff tear arthropathy,Acu te pain of left shoulder Follow schedule on package instructions 21 tablet 5 Active Hospital, Clinic, or Other Facility Administered Medication Ordered Dose Route Frequency Start Date End Date Status sodium chloride 0.9 % infusionIndications: Spondylosis of lumbar region without myelopathy or radiculopathy 100 mL/hr IV Continuous 05/13/2021 Active bupivacaine (Marcaine) 0.5 % injection 20 mgIndications:Rotato r cuff tear arthropathy of both shoulders 20 mg IJ Once PRN Procedure 05/08/2025 05/08/2025 Ended bupivacaine (Marcaine) 0.5 % injection 20 mgIndications:Rotato r cuff tear arthropathy of both shoulders 20 mg IJ Once PRN Procedure 05/08/2025 05/08/2025 Ended triamcinolone acetonide (Kenalog-40) injection 80 mgIndications:Rotato r cuff tear arthropathy of both shoulders 80 mg IX Once PRN Procedure 05/08/2025 05/08/2025 Ended triamcinolone acetonide (Kenalog-40) injection 80 mgIndications:Rotato r cuff tear arthropathy of both shoulders 80 mg IX Once PRN Procedure 05/08/2025 05/08/2025 Ended lidocaine (Xylocaine) 1 % injection 40 mgIndications:Rotato r cuff tear arthropathy of both shoulders 40 mg IX Once PRN Procedure 05/08/2025 05/08/2025 Ended lidocaine (Xylocaine) 1 % injection 40 mgIndications:Rotato r cuff tear arthropathy of both shoulders 40 mg IX Once PRN Procedure 05/08/2025 05/08/2025 Ended Active Problems Problem Noted Date Diagnosed Date Chronic left shoulder pain 04/01/2025 Left rotator cuff tear arthropathy 04/01/2025 Acute pain of left shoulder 04/01/2025 Tobacco abuse 04/01/2025 Tobacco abuse counseling 04/01/2025 Right wrist pain 03/24/2022 Rotator cuff tear arthropathy of left shoulder 1 10/06/2020 Spondylosis of lumbar region without myelopathy or radiculopathy 01/25/2018 Low back pain 01/25/2018 Lumbar degenerative disc disease 12/04/2017 Tendonitis of both rotator cuffs 05/17/2016 Essential (primary) hypertension 05/16/2016 Vitamin D deficiency 05/16/2016 Rotator cuff tear arthropathy of right shoulder 01/26/2016 Microscopic hematuria 01/11/2016 Chronic kidney disease, stage 3 12/07/2015 Neck pain 09/08/2015 Rotator cuff tear, non-traumatic 05/12/2015 Encounters Date Type Department Care Team Description 05/08/2025 8:40 AM EDT Office Visit [facility] Orthopaedic Surgery & Sports Medicine [address], [address] [place] [address] Lokesh Lopez MD Rotator cuff tear arthropathy of both shoulders (Primary Dx) 05/08/2025 Travel 04/29/[address] [facility] Orthopaedic Surgery & Sports Medicine [address], [address] [place] [address] Frankei Silverman MD 04/01/2025 8:[address] [facility] Orthopaedic Surgery & Sports Medicine [address], [address] [place] [address] Frankie Silverman MD Chronic left shoulder pain (Primary Dx); Left rotator cuff tear arthropathy; Acute pain of left shoulder; Tobacco abuse; Tobacco abuse counseling 04/01/2025 8:25 AM EDT - 04/01/2025 11:59 PM EDT Hospital Encounter [facility] X-Ray [address], [address] [place] [address] Chronic left shoulder pain Discharge Disposition: Home or Self Care 04/01/[address] [facility] Orthopaedic Surgery & Sports Medicine [address], [address] [place] [address] Frankie Silverman MD 04/01/2025 Travel 03/31/2025 Telephone [facility] Surgery & Sports Medicine [address], [address] [place] [address] Lokesh Lopez MD [facility] - Patient Message from Last 3 Months Immunizations Immunization Administration Dates Next Due Tdap 06/04/2020,01/21/2014 Family History Medical History Relation Name Comments Hypertension Father Stroke Father Thyroid disease Father Hypertension Mother Osteoporosis Mother Stroke Mother Thyroid disease Mother Relation Name Status Comments Father Mother Social History Tobacco Use Types Packs/Day Years [...] on file Sexual Orientation Not on file Last Filed Vital Signs Vital Sign Reading Time Taken Comments Blood Pressure 131/79 05/08/2025 8:25 AM EDT Pulse 57 07/16/2024 8:31 AM EST Temperature 36.9 C (98.4 F) 08/08/2022 7:53 AM EST Respiratory Rate 18 08/08/2022 8:51 AM EST Oxygen Saturation 99% 07/16/2024 8:31 AM EST Inhaled Oxygen Concentration - - Weight 61.2 kg (135 lb) 05/08/2025 8:25 AM EDT Height 177.8 cm (5' 10 ) 05/08/2025 8:25 AM EDT Body Mass Index 19.37 05/08/2025 8:25 AM EDT Plan of Treatment Upcoming Encounters Date Type Department Care Team (Late st Contact Info) Description 08/07/2025 9:20 AM EST Office Visit [facility] Orthopaedic Surgery & Sports Medicine [address], [address] [place] [address] Lokesh Lopez MD [address] [place] [address] Health Maintenance Due Date Last Done Comments [facility]-Hepatitis C Screening 1960 [facility]-Medicare Annual Wellness (AWV) 1959 [facility]-/Child/Adol SDOH Screenings 1960 [id number] Vaccine (#1) 1964 [facility]- SDOH Screenings 1977 [facility]-Adult SDOH Screenings 1977 [facility]-Pneumococcal Vaccine: 50 + Years (1 of 2 - PCV) 1978 CT Colonography 2004 Colonoscopy 2004 FIT-DNA 2004 FIT 2004 FOBT 2004 Sigmoidoscopy 2004 [facility]-Colorectal Cancer Screening 2004 [facility]-Zoster Vaccines (1 of 2) 2009 [facility]-RSV Vaccine: 60+ Years o r (1 - Risk 60-74 years 1-dose series) 2019 [facility]-Depression Screening 12/16/2023 12/15/2022 [facility]-Abdominal Aortic Aneurys m (AAA) Screening 2024 [facility]-Influenza Vaccine (#1) 2025 [facility]-DTaP,Tdap,and Td Vaccine s (3 - Td or Tdap) 06/04/2030 06/04/2020, 01/21/2014 HPV Vaccines Aged Out No longer eligi ble based on patient's age to complete this topic [facility]-HIB Vaccines Aged Out No longer e ligible based on patient's age to complete this topic [facility]-Hepatitis A Vaccines Aged Out No longer eligible based on patient's age to complete this topic [facility]-IPV Vaccines Aged Out No longer e ligible based on patient's age to complete this topic [facility]-Rotavirus Vaccines Aged Out No lo nger eligible based on patient's age to complete this topic Goals Goal Patient Goal Type Associated Problems Recent Progress Patient-Stated? Author Patient will verbalize understanding of orthotic wear , care and precautions. Occupational Therapy Mary Bonner Procedures Procedure Name Priority Date/Time Associated Diagnosis Comments OR ARTHROCENTESIS ASPIR&/INJ MAJOR JT/BURSA W/O US Routine 05/08/2025 9:15 AM EDT Rotator cuff tear arthropathy of both shoulders XR SHOULDER LEFT 2+ VIEWS Routine 04/01/2025 8:43 AM EDT Chronic left shoulder pain from Last 3 Months Results * OR ARTHROCENTESIS ASPIR&/INJ MAJOR JT/BURSA W/O US (05/08/2025 [...] to verify the correct patient, procedure, equipment, production support analyst and site/side marked as required. Patient was prepped and draped in the usual sterile fashion. us Lokesh Lopez MD IN CLINIC/BEDSIDE ORDERABLES [facility] al Result * XR Shoulder Left 2+ Views (04/01/2025 8:43 AM EDT) Anatomical Region Laterality Modality Upper Extremities, Shoulder Left Digi veronica Radiography Impressions 04/01/2025 9:09 AM EDT Mild anterior subluxation of the humerus similar to prior. Irregularity of the greater tuberosity nonspecific but can be seen with chronic rotator cuff pathology. Further degenerative changes as above. No acute osseous findings. CRITICAL RESULT: No. COMMUNICATION: Per this written report. Drafted by Alfonso Flores on 04/01/2025 9:07 AM Final report signed by Alfonso Flores on 04/01/2025 9:09 AM Narrative 04/01/2025 9:09 AM EDT CLINICAL INDICATION: pain TECHNIQUE: XR SHOULDER LEFT 2+ VIEWS COMPARISON: None. FINDINGS: Mild anterior subluxation humeral head. Mild/moderate osteoarthrosis of the glenohumeral joint with narrowing. Mild/moderate osteoarthrosis of the acromioclavicular joint. Subtle irregularity of the greater tuberosity. No acute appearing fractures. No significant soft tissue swelling. Procedure Note Alfonso Flores MD - 04/01/2025 CLINICAL INDICATION: pain TECHNIQUE: XR SHOULDER LEFT 2+ VIEWS COMPARISON: None. FINDINGS: Mild anterior subluxation humeral head. Mild/moderate osteoarthrosis ofthe glenohumeral joint with narrowing. Mild/moderate osteoarthrosis of theacromioclavicular joint. Subtle irregularity of the greater tuberosity. Noacute appearing fractures. No significant soft tissue swelling. IMPRESSION: Mild anterior subluxation of the humerus similar to prior. Irregularity ofthe greater tuberosity nonspecific but can be seen with chronic rotatorcuff pathology. Further degenerative changes as above. No acute osseous findings. CRITICAL RESULT: No. COMMUNICATION: Per this written report. Drafted by Alfonso Flores on 04/01/2025 9:07 AM Final report signed by Alfonso Flores on 04/01/2025 9:09 AM Frankie Silverman MD IMG XR PROCEDURES Final Result from Last [address] [place] [address] MEDICARE Care Teams Sugar Grinder Relationship Specialty Start Date End Date Micheal Saxena MD [address] [facility] [address] [place] [address] PCP - General 01/08/21
[2025-06-03 14:41] LABS: Albumin Level 4.1 g/dl (3.5-5.0); Albumin/Globulin Ratio 1.6 (1.1-1.8); Anion Gap 13.1 mEq/L (5-15); Chloride 100 mmol/L (98-107); Globulin 2.5 g/dL (1.3-3.2); Potassium 4.1 mmoL/L (3.5-5.1); Sodium 137 mmol/L (136-145)
[2025-06-03 14:56] LABS: Thyroid Stimulating Hormone 3.81 uIU/mL (0.465-4.68)
== END 2025-06-03 23:59 | disposition home or self-care (01) ==
LOC: LAB.DROPOF 14:34
PROVIDERS: PCP Internal Medicine; Visit Provider Internal Medicine
DX: E78.5 Hyperlipidemia, unspecified (principal); I10 Essential (primary) hypertension; E03.9 Hypothyroidism, unspecified; M15.0 Primary generalized (osteo)arthritis; Z12.5 Encounter for screening for malignant neoplasm of prostate
CPT/HCPCS: 80053; 80061; 84443; 85025; G0103

== ENCOUNTER 2025-06-10 06:46 | Day surgery (SDC) | payer MEDICARE, SELFPAY ==
[2025-06-03 14:47] VITALS: BMI 18.8
[2025-06-10] MEDS: TETRACAINE 0.5% OPTH SOL 15ML OP ×3 (07:25→07:35)
[2025-06-10] MEDS: CYCLOPENTOLATE 2% OPHTH SOLN 2ML BOTTLE OP ×3 (07:25→07:35)
[2025-06-10] MEDS: PHENYLEPHRINE 2.5% OPHTH SOLN 2ML OP ×3 (07:25→07:35)
[2025-06-10 07:31] VITALS: BP 147/72; PULSE 48; RESP 16; TEMP 36.2; O2SAT 99
[2025-06-10 08:50] VITALS: BP 156/77; PULSE 50; RESP 16; O2SAT 100
[2025-06-10] MEDS: TIMOLOL 0.5% OPTH SOLN 5ML OP (08:54)
[2025-06-10] MEDS: TOBRAMYCIN/DEX OPTH SUSP 2.5ML OP (08:54)
[2025-06-10 08:55] VITALS: BP 152/77; PULSE 51; RESP 16; O2SAT 100
[2025-06-10] MEDS: MIDAZOLAM 2MG/2ML VIAL 1 MG IV (08:55)
[2025-06-10] MEDS: LIDOCAINE 1% PF 2ML VIAL 2 ML IJ (08:55)
[2025-06-10 09:00] VITALS: BP 150/71; PULSE 48; RESP 16; O2SAT 100
[2025-06-10 09:06] VITALS: BP 144/73; PULSE 46; RESP 16; O2SAT 100
[2025-06-10 09:08] VITALS: BP 137/79; PULSE 53; RESP 16; TEMP 36.3; O2SAT 100
--- NOTE | 2025-06-10 10:22 | HMH.PROCNOTE ---
[facility] Procedure Note Date: 06/10/25 Time: : Procedure Note:: Preoperative Diagnosis: Cataract combined NS Cortical Complex [Right] Eye Postop diagnosis: same Operation: Microscopic phacoemulsification with intraocular lens implant [Right] Eye Specimen: None Blood Loss: None The patient was examined in the office with a complaint of poor vision in the [right] eye. The patient reports that this interferes with ADLs such as reading, watching TV and/or driving or the vision is like looking through a foggy haze and is very troubling. The patient was examined and found to have a visually significant cataract with best corrected vision of [20/400] by refraction and/or glare testing. Treatment options, risks and benefits were explained and the patient elected to have cataract surgery in an attempt to improve their vision. The patient had the eye anesthetized with topical tetracaine, the eye ways prepped and draped in the usual fashion for cataract surgery. A paracentesis and a temporal keratotomy were made. 0.2cc of 1% lidocaine PF was placed into the anterior chamber. And aqueous/viscoelastic exchange was done and a 360 degree capsulorexis was performed. Through hydrodissection and delineation with BSS on a cannula was done. The lens nucleus was phecoemulsified with CDE of [7.38]. Residual cortical material was removed using automated I&A The capsular bag was deepened with viscoelastica and a PCIOL was placed in the capsular bag with good centration and stability. Residual viscoelastic was removed using automated I&A. The keratotomy incision was hydrated with BSS on a cannula. The wound were checked and found to be water tight. IOP was checked digitally and adjusted as needed so as not to be too high. 1 drop of timolol 0.5%, ofloxacin, prednisolone acetate and ketorolac was instilled and eye shield taped over the eye. The patient was taken to recovery in good condition and will be seen postoperatively.
== END 2025-06-10 09:17 | disposition home or self-care (01) ==
PROVIDERS: PCP Internal Medicine; Visit Provider Ophthalmology
DX: H25.811 Combined forms of age-related cataract, right eye (principal); I10 Essential (primary) hypertension; F17.210 Nicotine dependence, cigarettes, uncomplicated; E05.90 Thyrotoxicosis, unspecified without thyrotoxic crisis or storm; E78.5 Hyperlipidemia, unspecified; Z79.890 Hormone replacement therapy; Z79.899 Other long term (current) drug therapy
CPT/HCPCS: 66984; J2250; V2632